=== PATIENT | female | born 1950 | race Caucasian/White ===

== ENCOUNTER 2016-10-02 05:22 | Inpatient (IN) | payer OTHER ==
[~2016-10-02] VITALS: Ht 165.1 cm; Wt 69.4 kg
--- NOTE | ~2016-10-02 | H ---
[facility] [place] [address] [address] [place] [address] HISTORY AND PHYSICAL Name: KYLER CEDENORICPattie Beauchamp Room #: 306-P [facility] IN M.R.#: [id number] Admission: 10/02/16 Attend Phys: Chava Bobo MD, Discharge: 10/09/16 Date of : 46 Report #: [id number] THIS REPORT FOR: //name// For History and Physical, please see office documentation/handwritten note in the patient's medical record. <ELECTRONICALLY SIGNED> By: Chava Bobo MD, FACS 10/15/16 1020 0853 Chava Bobo MD, FACS /jr
--- NOTE | ~2016-10-02 | S ---
[facility] [place] [address] SURGICAL PATH RPT PROCEDURE Name: CATARINO MOCK Room #: 402-P ADM IN M.R.#: [id number] Admission: 10/02/16 Date of : 46 Discharge: Report #: [id number] Path Case #: [id number] PATHOLOGY REPORT COLLECTION DATE: 10/02/2016 RECEIVED DATE: 10/03/2016 SUBMITTING PHYS: Dr. Chava Bobo OTHER PHYS: Dr. Patrice Garcia SPECIMEN(S) RECEIVED: A.Ischemic abdominal wall fascia, incarcerated omentum * * * * * * * * * * * * FINAL DIAGNOSIS: Abdominal wall: - Markedly congested fibroadipose and dense fibrovascular connective tissue. (IUV:csd; d/t: 10/04/2016) PATHOLOGIST: Kaley Odell M.D. REPORT ELECTRONICALLY SIGNED BY: Kaley Odell M.D. DATE/TIME: 10/04/2016 15:02 * * * * * * * * * * * * GROSS PATHOLOGY: The specimen is received in formalin, labeled "Catarino Mock - abdominal wall." Received is a 12.2 x 6.8 x 0.9 cm aggregate of pink-goode to yellow-goode, membranous, and lobulated fibroadipose soft tissue. The specimen is sectioned to reveal a homogenous yellow-goode and lobulated cut surface. No masses or lesions are grossly there are. [employer] sections are submitted in cassette A1. (TTL; 10/03/2016) CLINICAL HISTORY: Parastomal hernia INITIAL CPT CODE(S): 41068 Professional services performed by [facility] at [facility] [address], [place] [address] Technical services performed by [facility] at [address] [place] [address], [address] [address]. [facility] [address] [place] [address] SURGICAL PATH RPT PROCEDURE Name: CATARINO MOCK Room #: 402-P ADM IN M.R.#: [id number] Admission: 10/02/16 Date of : 46 Discharge: Report #: [id number] Path Case #: [id number] [facility] [address] [address] PHONE: [phone] DIRECTOR: Wai Hinton M.D. * * * END OF REPORT * * *
--- NOTE | ~2016-10-02 | O ---
[facility] [place] [place] [address] OPERATIVE REPORT Name: WILIANCATARINO C Room #: 402-P ADM IN M.R.#: [id number] Admission: 10/02/16 Attend Phys: Chava Bobo MD, Discharge: Date of : 46 Report #: [id number] THIS REPORT FOR: //name// CC: Patrice Bobo DATE OF SERVICE: 10/02/2016 PREOPERATIVE DIAGNOSES: 1. Recurrent incarcerated parastomal hernia. 2. Suspected intraabdominal adhesions. 3. Parkinson's disease with resting tremors. 4. Hypothyroidism secondary to Graves' disease. 5. Chronic pain syndrome with neck and leg pain. 6. Generalized debility. POSTOPERATIVE DIAGNOSES: 1. Recurrent incarcerated parastomal hernia. 2. Dense insignificant intraabdominal adhesions. 3. Parkinson's disease with resting tremors. 4. Hypothyroidism secondary to Graves' disease. 5. Chronic pain syndrome with neck and leg pain. 6. Generalized debility. 7. Multiple recurrent incarcerated incisional ventral hernias. 8. Ischemic/necrotic abdominal wall wound. PROCEDURES PERFORMED: 1. Exploratory laparotomy. 2. Extensive lysis of adhesions lasting 197 minutes. 3. Debridement of necrotic/ischemic abdominal wall fascia. 4. Complex abdominal wall reconstruction with open repair of incarcerated recurrent incisional ventral hernias and an incarcerated recurrent parastomal hernia using biomesh (Strattice sandwiched repair). 5. Modified Sugarbaker repair of the parastomal hernia with the biomesh underlay. 6. Bilateral component separation of the rectus abdominis muscle to assist in a tension-free fascial closure. 7. Adjacent tissue transfer of the anterior abdominal wall to achieve complete wound closure with the wound measuring 40 x 34 cm in dimension (1360 square cm). 8. Placement of an external tissue knitting machine operator device (DermaClose) to achieve complete wound coverage with reapproximation of skin edges. 9. Modifier 22 procedure for again extreme difficulty of a procedure that required a lengthy lysis of adhesions of greater than 3 hours coupled with the necessity of a very complex recurrent abdominal wall reconstruction that included debridement of ischemic abdominal wall fascia and complex techniques to close the abdominal wall. This required bilateral component separation as well [address] [address] OPERATIVE REPORT Name: CATARINO CEDENO Nito Room #: 402-P [facility] IN [facility].#: [id number] Admission: 10/02/16 Attend Phys: Chava Bobo MD, Discharge: Date of : 46 Report #: [id number] as adjacent tissue transfer closure of the abdominal wall and the total operative time was greater than 5-1/2 hours as opposed to the usual 60 minute open ventral hernia repair. SURGEON: Chava Bobo M.D. JIG AND FIXTURE BUILDER: Gregory Garcia M.D. SECOND CLARIFICATION OPERATOR: ABRAM Ramirez. ANESTHESIA: General endotracheal anesthesia. ESTIMATED BLOOD LOSS: 50 mL. COMPLICATIONS: None appreciated. SPECIMENS: 1. Ischemic abdominal wall fascia. 2. Incarcerated omentum. INDICATIONS: The patient is a 66-year-old female with a past history of chronic pain syndrome who has undergone numerous prior attempted repairs of parastomal hernias and incisional ventral hernias. The patient's issues all began with complaints of rectal prolapse, which were treated in year 1999 with several perineal procedures as well as a sigmoid resection that was complicated by a leak requiring Jimmy's procedure. As the patient has undergone numerous repeat explorations with attempts of colostomy reversal that were unsuccessful due to a devascularized rectal stump and she has had numerous repairs of her parastomal hernias and incisional ventral hernias, the patient has undergone 2 prior complex abdominal wall reconstruction procedures over the past couple of years. Ultimately, the patient had prolapse of her ostomy that required local repair by a surgeon at [facility] and unfortunately she has now developed a recurrent large parastomal hernia containing loops of small bowel. Indication was for repeat exploration for repair and intraoperative findings of numerous incarcerated recurrent incisional ventral hernias were found as well as her recurrent parastomal hernia that contained loops of small bowel. DESCRIPTION OF PROCEDURE: After explaining the risks, benefits and alternatives of the procedure with the patient in detail in the preoperative holding area and obtaining written consent, the patient was brought to the operating room and placed supine on the operating room table. After conducting a thorough timeout procedure verifying correct patient and procedure, the patient was given general endotracheal anesthesia. Once adequate anesthesia was obtained, her SCDs were hooked up to pneumatic compression device and she was given a preoperative dose of antibiotics in line with the SCIP protocol. The patient's ostomy had a Dubose catheter placed within it with a 30 mL balloon, which was inflated and then the [address] [address] OPERATIVE REPORT Name: CATARINO CEDENO Room #: 402-P [facility] IN M.R.#: [id number] Admission: 10/02/16 Attend Phys: Chava Bobo MD, Discharge: Date of : 46 Report #: [id number] abdomen was sterilely prepped and draped in standard surgical sterile fashion. Sterile Dubose catheter was draped to the side and a sterile Ioban was placed over top of the ostomy and a Dubose catheter with a 4 x 4 placed over the ostomy itself to prevent surgical field contamination. After the sterile drapes were applied, #10 bladed scalpel was used to create a longitudinal midline wound. Electrocautery was used to carry this down through skin and subcutaneous tissues to ensure hemostasis. Once I arrived upon the level of the fascia, there were significant adhesions seen. As such, the incision was extended cephalad and I gained access into the abdomen in the superior most portion where a finger was placed in the abdomen. I proceeded to open the longitudinal midline wound with some difficulty due to adhesions. Ultimately, I was able to open the entire midline wound with again some slight difficulty requiring a lengthy lysis of adhesions and using combination of electrocautery and Metzenbaum scissor dissection. Any time we were near bowel, cold dissection with Metzenbaum scissors were used to prevent injury from thermal spread. Once the midline wound was opened, I proceeded to take down all adhesions of bowel from the posterior aspect of the anterior abdominal wall circumferentially. Significant dissection was carried in the patient's left lateral abdomen where the parastomal hernia was found. Ultimately, I was able to reduce all of the incarcerated loops of small bowel and omentum from the parastomal hernia, which was moderate in size. Upon entry into the abdomen, we did bisect numerous recurrent incarcerated incisional ventral hernias as well down the midline wound. Once the abdomen was opened and the hernia defect was identified, I elected to perform a sandwich repair of this for hopefully definitive management. Electrocautery was used to clean off the fascia externally carrying this back as far as possible circumferentially and in doing so, there was ischemic/necrotic abdominal wall fascia that was encountered that was resected and passed off the field as specimen. Once I carried this especially to the left lateral aspect, the parastomal hernia defect was closed using running #1 PDS suture in standard fashion to make it snug, but not extremely tight to the bowel running through the abdominal wall. Attempts at reapproximating the fascial edges down the midline showed that it would be under extreme tension and as such, I did elect to perform a bilateral component separation technique using electrocautery to score the lateral aspect of the rectus abdominis muscle bilaterally. This allowed significant medial mobilization of the rectus muscles to be reapproximated down the midline in a tension-free fashion. Attention was then turned towards definitive management of her hernia repairs with biologic mesh buttressing. I selected a piece of Strattice biologic mesh that measured 40 x 25 cm in dimension. The mesh was trimmed into 2 pieces, one being 30 x 25 cm in dimension, the other being 10 x 25 cm in dimension. The 10 x 25 cm piece was fully hydrated and placed into the abdomen where the small bowel was placed to run laterally down the pelvic side wall. I then performed a Sugarbaker repair using numerous #1 PDS sutures, taking full thickness bites to the abdominal wall through the mesh backup through the mesh and back up through the abdominal wall where they were tied in the subcutaneous space. Numerous sutures were placed throughout the mesh to hold the mesh in close approximation with the [address] [address] OPERATIVE REPORT Name: CATARINO CEDENO Room #: 402-P [facility] IN ..#: [id number] Admission: 10/02/16 Attend Phys: Chava Bobo MD, Discharge: Date of : 46 Report #: [id number] posterior aspect of the anterior abdominal wall, giving us an excellent Sugarbaker buttressed repair. I then utilized 20 mL of Tisseel and sprayed this in between the mesh in the posterior peritoneum to help with seroma formation and to hold it in proper position. This mesh came all the way up to the fascial edge medially. I then proceeded to take the 30 x 25 cm piece of Strattice and fashioned it to the anterior abdominal wall where it was sutured to the left lateral abdomen taking bites of the anterior fascia along with the mesh and tying it down to anchor it in position. A keyhole was cut out for the ostomy and was not sutured around the ostomy to prevent stricturing, but was placed loosely around the ostomy to help buttress. This was not sutured down in the right lateral abdomen at this juncture. The abdomen was irrigated and hemostasis was assured. I then proceeded to close the midline fascial wound using looped #1 PDS suture in standard running fashion from inferior to superior aspects. This was tied down in the subxiphoid location completing the suture repair. The biologic mesh was then trimmed to fit perfectly into the subcutaneous space to act as an onlay mesh to complete the sandwich repair. Numerous additional sutures of #1 PDS suture were then placed through the mesh through the anterior fascia and backup through the mesh where they were tied in the subcutaneous space in similar fashion as the left lateral abdomen. This allowed both pieces of biologic mesh to be smooth and taut with no rippling. Both added excellent buttress repair of the hernia defects in question. I then placed two 19-Albanian round Rickie-Jasso drains in the subcutaneous space, the one emanating from the right lower abdomen crossed over midline and ran up the left subcutaneous gutter and in similar fashion, the drain emanating from the left lower quadrant crossed over midline in the pelvis and ran up the right subcutaneous gutter. Both drains were anchored to the skin using 2-0 nylon in standard fashion. I then performed adjacent tissue transfer techniques to ensure complete soft tissue coverage over the mesh repair. Skin flaps that had been created circumferentially were elevated and counter incisions were made internally which allowed me to rotate subcutaneous tissue and fat medially. As this tissue was rotated, it was sutured to the opposite side dermis using interrupted inverted 3-0 Vicryl sutures. Numerous sutures were placed, which gave us excellent soft tissue coverage overlying the biologic mesh repair. Skin was then closed with skin robin. As the skin was brought together, but under slight tension, I did elect also to place external tissue knitting machine operator devices to offload tension down the midline. This skin anchors were placed lining the wound longitudinally and were anchored to the skin using a skin stapler. I then utilized 4 separate automatic tensioner devices that were each laced through the anchors appropriately and ratcheted it down to perform both tissue expansion as well as to bolster the midline wound and offload tension down the midline, which is a risk factor for wound dehiscence, especially in this patient with a colostomy. These were placed after applying Telfa to the midline wound to protect the wound itself. DuoDERM was then placed on the skin under the tensioner devices to prevent maceration of the skin. Sterile colostomy appliance was then applied. ABDs, Medipore tape and an abdominal binder were then applied in standard fashion. At the end of the lengthy procedure, all [facility] [address] [place] [address] OPERATIVE REPORT Name: CEDENOCATARINO C Room #: 402-P [facility] IN M.R.#: [id number] Admission: 10/02/16 Attend Phys: Chava Bobo MD, Discharge: Date of : 46 Report #: [id number] instrument, needle and sponge counts were correct. The patient tolerated the procedure without incident, was awakened in the operating room and transitioned to the recovery room in stable condition with no apparent complications. <ELECTRONICALLY SIGNED> By: Chava Bobo MD, FACS 10/04/16 0731 1456 1631 Chava Bobo MD, FACS /nt
--- NOTE | ~2016-10-02 | P ---
[facility] [place] [address] PROCEDURE REPORT Name: CATARINO CEDENO Nito Room #: 306-P ADM IN M.R.#: [id number] Admission: 10/02/16 Attend Phys: Chava Bobo MD, Discharge: Date of : 46 Report #: [id number] THIS REPORT FOR: //name// CC: Patrice Bobo DATE OF SERVICE: 10/08/2016 PREOPERATIVE DIAGNOSES: Status post exploratory laparotomy with extensive lysis of adhesions, debridement of ischemic abdominal wall fascia, complex abdominal wall reconstruction with open repair of an incarcerated recurrent incisional parastomal and ventral hernias with biomesh, bilateral component separation, adjacent tissue transfer closure of the anterior abdominal wall and placement of external tissue expanders. POSTOPERATIVE DIAGNOSES: Status post exploratory laparotomy with extensive lysis of adhesions, debridement of ischemic abdominal wall fascia, complex abdominal wall reconstruction with open repair of an incarcerated recurrent incisional parastomal and ventral hernias with biomesh, bilateral component separation, adjacent tissue transfer closure of the anterior abdominal wall and placement of external tissue expanders. PROCEDURE: Removal of external tissue armorer technician device (DermaClose). SURGEON: Gregory Garcia MD. REGIONAL MARKETING DIRECTOR: ABRAM Ramirez. ANESTHESIA: None required. ESTIMATED BLOOD LOSS: Zero. COMPLICATIONS: None appreciated. INDICATIONS FOR PROCEDURE: This is a 66-year-old female patient, who has undergone numerous prior attempted repairs of parastomal hernias and incisional ventral hernias. Her issues all began with complaints of rectal prolapse, treated in the year 1999. She underwent several perineal operations as well as a sigmoid resection complicated by an intra-abdominal staple line leak. This required a Jimmy's procedure with resection and an end colostomy. The patient has undergone numerous repeat explorations with attempts of colostomy reversal, that were unsuccessful due to a devascularized rectal stump, and she has undergone numerous repairs of her parastomal hernias and incisional ventral hernias. She has also undergone 2 prior complex abdominal wall reconstruction procedures over the past several years. Her stomal prolapse required local repair by a surgeon at [facility]; however, she developed a recurrent [address] [address] PROCEDURE REPORT Name: CEDENOCATARINO C Room #: 306-P ADM IN [facility].#: [id number] Admission: 10/02/16 Attend Phys: Chava Bobo MD, Discharge: Date of : 46 Report #: [id number] large parastomal hernia, containing loops of small bowel, and she underwent the above procedure. Tissue expanders were placed due to poor wound healing with evidence of prior herniation to help offload tension down the midline incision and promote wound healing. As enough laxity has been gained in the anterior abdominal wall to prevent superficial wound dehiscence, removal of the external tissue armorer technician device is indicated. DESCRIPTION OF PROCEDURE IN DETAIL: After explaining the risks, benefits, expectations, and alternatives of the procedure with the patient, an informed consent was obtained. The patient remained in her hospital bed in the supine position. The three separate external tensioner devices were removed by dividing the sutures of each of the tensioners. This allowed the sutures to be unwoven from the anchors and retracted within the device. Once all the tensioners had been removed, the Telfa dressing was removed from the midline wound. The wound was without dehiscence, ecchymosis, or drainage. The wound was clean, dry, and intact. Sterile staple removers were then used to remove all the robin that had affixed the anchors to the anterior abdominal wall. Once the robin were removed, the anchors themselves were gently lifted out of the patient's abdominal wall, leaving just the midline skin robin present down the longitudinal midline wound. There was no undue tension of the wound, and no evidence of necrosis or ischemia. The patient's ostomy remained pink, patent, and functional with stool in the ostomy appliance, well away from the midline wound. The sponge, needle, and instrument counts were correct at the conclusion of the procedure. The patient tolerated the procedure well. She remained in her hospital bed with no apparent complications. The wound was then dressed with sterile dressings and Medipore tape. The abdominal binder was replaced. <ELECTRONICALLY SIGNED> By: Gregory Garcia MD, FACS 10/08/16 1543 0900 1215 Gregory Garcia MD, FACS /nt
--- NOTE | ~2016-10-02 | EKG ---
[address] [address] ELECTROCARDIOGRAM REPORT Name: CATARINO CEDENO Room #: 306-P [facility] IN M.R.#: [id number] Admission: 10/02/16 Attend Phys: Chava Bobo MD, Discharge: Date of : 46 Report #: [id number] THIS REPORT FOR: //name// [facility] Test Date: 2016-10-04 Test Time: 22:10:44 Pat Name: CATARINO CEDENO Department: Room: [facility] Gender: F Diabetologist: rosa : 1950 Requested By: Kana Damian Order Number: [id number] MD: Renny Maza Measurements Intervals [place] Rate: 97 P: 64 MI: 151 QRS: -32 QRSD: 100 T: 33 QT: 340 QTc: 432 Interpretive Statements Sinus rhythm Left axis deviation No previous ECG available for comparison Electronically Signed On 10-05-2016 7:37:21 CDT by Renny Maza [email or web address] <ELECTRONICALLY SIGNED> By: Renny Maza MD, [facility] 10/05/16 0737 2210 09 Renny Maza MD, FACC /EPI
[~2016-10-02 05:22] MED LIST: AMITRIPTYLINE H25 M2 PO; AMITRIPTYLINE H50 M4 PO; ATORVASTATIN CA40 MG PO; BACTRIM DS TAB1 EACH PO; BISACODYL SUPP10 MG; BOOST BREEZE237 ML PO; CARBIDOPA-LEVO1 EAC9 PO; CARBIDOPA25 MG PO; CELEXA20 MG PO; CHANTIX0.5 MG PO; CITALOPRAM HBR40 MG PO; CLONAZEPAM 0.50.5 M1 PO; CLONAZEPAM 1 MG1 M1 PO; CLONAZEPAM0.5 MG PO; COLACE100 MG PO; DAKIN'S473 M1; FISH OIL 1,001000 M2 PO; HYDROCODON-ACE1 EAC7 PO; HYDROCORTISONE30 G9; LEVOTHYROXIN0.125 M1 PO; LEVOTHYROXIN0.137 M1 PO; LEVOTHYROXINE 0.15MG PO; LINEZOLID600 MG PO; MACROBID 100 M100 M1 PO; MELATIN3 MG PO; MIRAPEX0.5 MG PO; MIRAPEX1 MG PO; NEURONTIN300 MG PO; NEURONTIN600 MG PO; NITROMIST8.5 GM SUBLING; NORCO 10-325 T1 EACH PO; NORCO 5-325 TA1 EACH PO; OXYCODONE HCL E10 MG PO; PERCOCET 5-3251 EACH PO; PERCOCET PO; PHENERGAN 25 MG25 M1 PO; PHENERGAN 25 MG25 MG PO; PLAVIX 75 MG TA75 M1 PO; PROMOD946 ML; PROTONIX40 M1 PO; SENNA PLUS TAB1 EACH PO; SENOKOT-S1 TA1 PO; SERTRALINE HCL100 MG PO; TRAMADOL 50 MG50 MG PO; TRANSDERM-SCO1 PATC1 TD; TRINATE TABLET1 TAB PO; TYLENOL325 MG PO; VITAMIN D1000 UNI1 PO; XANAX 0.5 MG0.5 MG PO; ZOFRAN ODT4 MG DISSOLVE; ZOFRAN ODT4 MG PO
[2016-10-02 12:15] VITALS: BP 116/43
[2016-10-02 21:25] VITALS: BP 147/98
[2016-10-02 23:20] VITALS: BP 116/73
[2016-10-03 00:40] VITALS: BP 127/66
[2016-10-03 03:35] VITALS: BP 140/85
[2016-10-03 07:07] LABS: HEMOGLOBIN 10.5 gm/dL (12.0-15.0); MCH 29.7 pg (26.0-34.0); MCHC 32.9 g/dL (28.0-37.0); MCV 90.2 fL (80.0-100.0); RBC 3.55 mil/uL (4.20-5.00); RDW 14.7 % (10.5-14.5); WBC 11.5 thou/uL (4.0-11.0)
[2016-10-03 07:23] LABS: CALCIUM 7.8 mg/dL (8.5-10.1); CREATININE 0.9 mg/dL (0.6-1.3); POTASSIUM 4.6 mmol/L (3.5-5.1)
[2016-10-03 08:00] VITALS: BP 102/50
[2016-10-03 15:18] VITALS: BP 116/65
[2016-10-03 19:30] VITALS: BP 114/58; BP 133/77
[2016-10-04 00:37] VITALS: BP 101/57
[2016-10-04 04:53] VITALS: BP 123/68
[2016-10-04 06:00] LABS: ABSOLUTE NEUTROPHILS 9.4 thou/uL (1.4-8.2); BASOPHILS 0.2 % (0.0-2.0); EOSINOPHILS 0.3 % (0.0-3.0); HEMATOCRIT 32.1 % (37.0-47.0); HEMOGLOBIN 10.5 gm/dL (12.0-15.0); LYMPHOCYTES 12.2 % (24.0-44.0); MCH 29.4 pg (26.0-34.0); MCHC 32.6 g/dL (28.0-37.0); MCV 90.2 fL (80.0-100.0); MONOCYTES 8.5 % (1.0-8.0); PLATELET COUNT 302 thou/uL (150-400); POLYS 78.8 % (36.0-66.0); RBC 3.56 mil/uL (4.20-5.00); RDW 14.8 % (10.5-14.5)
[2016-10-04 06:01] LABS: MANUAL DIFF NO
[2016-10-04 06:08] LABS: CALCIUM 8.4 mg/dL (8.5-10.1); CREATININE 0.6 mg/dL (0.6-1.3)
[2016-10-04 07:22] VITALS: BP 128/83
[2016-10-04 16:23] VITALS: BP 142/78
[2016-10-04 20:00] VITALS: BP 121/63
[2016-10-04 23:46] VITALS: BP 122/67
[2016-10-05 03:21] VITALS: BP 148/84
[2016-10-05 04:54] LABS: HEMATOCRIT 31.7 % (37.0-47.0); HEMOGLOBIN 10.6 gm/dL (12.0-15.0); MCH 29.5 pg (26.0-34.0); MCHC 33.4 g/dL (28.0-37.0); MCV 88.4 fL (80.0-100.0); PLATELET COUNT 322 thou/uL (150-400); RBC 3.59 mil/uL (4.20-5.00); RDW 14.3 % (10.5-14.5); WBC 14.8 thou/uL (4.0-11.0)
[2016-10-05 05:02] LABS: CALCIUM 8.7 mg/dL (8.5-10.1); CREATININE 0.6 mg/dL (0.6-1.3); POTASSIUM 3.8 mmol/L (3.5-5.1)
[2016-10-05 05:05] LABS: MANUAL DIFF YES
[2016-10-05 07:19] LABS: TOTAL CELL COUNT 100
[2016-10-05 08:06] VITALS: BP 159/93
[2016-10-05 15:39] VITALS: BP 131/62
[2016-10-05 20:00] VITALS: BP 138/80
[2016-10-06 04:00] VITALS: BP 92/64
[2016-10-06 10:04] VITALS: BP 156/77
[2016-10-06 13:59] LABS: HEMOGLOBIN 10.1 gm/dL (12.0-15.0); MCH 29.8 pg (26.0-34.0); MCHC 33.6 g/dL (28.0-37.0); MCV 88.8 fL (80.0-100.0); RBC 3.37 mil/uL (4.20-5.00); RDW 14.1 % (10.5-14.5); WBC 11.4 thou/uL (4.0-11.0)
[2016-10-06 14:07] LABS: CALCIUM 8.8 mg/dL (8.5-10.1); CREATININE 0.7 mg/dL (0.6-1.3); POTASSIUM 3.7 mmol/L (3.5-5.1)
[2016-10-06 17:44] VITALS: BP 135/67
[2016-10-06 19:20] VITALS: BP 132/72
[2016-10-07 04:02] VITALS: BP 141/69
[2016-10-07 04:19] LABS: HEMATOCRIT 27.2 % (37.0-47.0); HEMOGLOBIN 9.5 gm/dL (12.0-15.0); MCH 30.5 pg (26.0-34.0); MCHC 34.8 g/dL (28.0-37.0); MCV 87.5 fL (80.0-100.0); RBC 3.11 mil/uL (4.20-5.00); WBC 10.5 thou/uL (4.0-11.0)
[2016-10-07 04:28] LABS: CALCIUM 8.8 mg/dL (8.5-10.1); CREATININE 0.6 mg/dL (0.6-1.3)
[2016-10-07 07:10] VITALS: BP 116/47
[2016-10-07 15:36] VITALS: BP 128/68
[2016-10-07 20:00] VITALS: BP 99/79
[2016-10-08 04:00] VITALS: BP 110/80
[2016-10-08 06:24] LABS: HEMATOCRIT 27.8 % (37.0-47.0); HEMOGLOBIN 9.6 gm/dL (12.0-15.0); MCH 30.4 pg (26.0-34.0); MCHC 34.6 g/dL (28.0-37.0); MCV 87.6 fL (80.0-100.0); RBC 3.17 mil/uL (4.20-5.00); RDW 14.1 % (10.5-14.5); WBC 8.4 thou/uL (4.0-11.0)
[2016-10-08 06:31] LABS: CALCIUM 8.8 mg/dL (8.5-10.1); CREATININE 0.6 mg/dL (0.6-1.3); POTASSIUM 4.2 mmol/L (3.5-5.1)
[2016-10-08 08:20] VITALS: BP 124/72
[2016-10-08 17:00] VITALS: BP 134/77
[2016-10-08 19:08] VITALS: BP 135/68
[2016-10-09 03:14] VITALS: BP 81/43
[2016-10-09 06:30] LABS: HEMATOCRIT 29.7 % (37.0-47.0); MCH 29.5 pg (26.0-34.0); MCHC 33.7 g/dL (28.0-37.0); MCV 87.5 fL (80.0-100.0); RBC 3.4 mil/uL (4.20-5.00)
[2016-10-09 06:54] LABS: CREATININE 0.8 mg/dL (0.6-1.3); POTASSIUM 3.8 mmol/L (3.5-5.1)
[2016-10-09 08:00] VITALS: BP 103/60
[2016-10-09] MEDS ORDERED: HYDROCODONE-ACE15 ML PER TUBE (08:48)
[2016-10-09 10:57] VITALS: BP 103/60
== END 2016-10-09 11:40 | disposition home health service (06) | DRG 336 ==
LOC: TBA 05:22 → 4N 05:22 → 3N 05:22 → PRE 13:17 → 4N 21:59 → 3N 10-04 23:25
PROVIDERS: Internal Medicine; Surgery
PROC: 0JB80ZZ Excision of Abdomen Subcutaneous Tissue and Fascia, Open Approach (ICD-10-PCS; principal; 2016-10-02)
PROC: 0HX7XZZ Transfer Abdomen Skin, External Approach (ICD-10-PCS; principal; 2016-10-02)
PROC: 0DN80ZZ Release Small Intestine, Open Approach (ICD-10-PCS; principal; 2016-10-02)
PROC: 0WUF0JZ Supplement Abdominal Wall with Synthetic Substitute, Open Approach (ICD-10-PCS; principal; 2016-10-02)
PROC: 0JH80NZ Insertion of Tissue Expander into Abdomen Subcutaneous Tissue and Fascia, Open Approach (ICD-10-PCS; principal; 2016-10-02)
PROC: 0JP Subcutaneous Tissue and Fascia, Removal (ICD-10-PCS; 2016-10-08)
DX: K43.0 Incisional hernia with obstruction, without gangrene (principal); N39.0 Urinary tract infection, site not specified; K43.3 Parastomal hernia with obstruction, without gangrene; G20 Parkinson's disease; E05.00 Thyrotoxicosis with diffuse goiter without thyrotoxic crisis or storm; G89.4 Chronic pain syndrome; I50.9 Heart failure, unspecified; F32.9 Major depressive disorder, single episode, unspecified; E78.00 Pure hypercholesterolemia, unspecified; E03.9 Hypothyroidism, unspecified; K66.0 Peritoneal adhesions (postprocedural) (postinfection); F41.9 Anxiety disorder, unspecified; Z96.653 Presence of artificial knee joint, bilateral; Z88.1 Allergy status to other antibiotic agents; Z88.8 Allergy status to other drugs, medicaments and biological substances; Z82.49 Family history of ischemic heart disease and other diseases of the circulatory system; Z90.710 Acquired absence of both cervix and uterus; Z90.722 Acquired absence of ovaries, bilateral; Z83.3 Family history of diabetes mellitus
CPT/HCPCS: 10096; 10790; 50010; 50101; 50386; 50455; 50994; 51437; 54124; 56524; 56525; 56527; 56530; 57092; 62110; 62900; 70005

== ENCOUNTER 2016-10-27 20:53 | Inpatient (IN) | payer OTHER ==
[~2016-10-27] VITALS: Ht 165.1 cm; Wt 68.9 kg
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
--- NOTE | ~2016-10-27 | EKG ---
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
[~2016-10-27 20:53] MED LIST changes: +HYDROCODONE-ACE15 ML PER TUBE
[2016-10-27 21:00] VITALS: BP 162/77
[2016-10-27] MEDS ORDERED: OXYCODONE HCL10 MG PO (21:32)
[2016-10-27 21:35] LABS: ABSOLUTE NEUTROPHILS 10.8 thou/uL (1.4-8.2); BASOPHILS 0.6 % (0.0-2.0); HEMATOCRIT 26.7 % (37.0-47.0); HEMOGLOBIN 8.8 gm/dL (12.0-15.0); LYMPHOCYTES 9.6 % (24.0-44.0); MCH 28.4 pg (26.0-34.0); MONOCYTES 4.1 % (1.0-8.0); PLATELET COUNT 590 thou/uL (150-400); POLYS 84.7 % (36.0-66.0); WBC 12.8 thou/uL (4.0-11.0)
[2016-10-27 21:36] LABS: MANUAL DIFF NO
[2016-10-27 21:44] LABS: URINE BILIRUBIN NEGATIVE (Negative); URINE BLOOD NEGATIVE (Negative); URINE COLOR YELLOW; URINE GLUCOSE-RANDOM* NEGATIVE (Negative); URINE KETONES TRACE (Negative); URINE LEUKOCYTES-REFLEX TRACE (Negative); URINE PROTEIN (DIPSTICK) NEGATIVE (Negative); URINE UROBILINOGEN 0.2 E.U./dl (0.2-1.0)
[2016-10-27 21:46] LABS: ALBUMIN 2.3 g/dL (3.4-5.0); ALKALINE PHOSPHATASE 121 U/L (46-116); ANION GAP 10 mmol/L (7-16); BUN 7 mg/dL (7-18); CHLORIDE 96 mmol/L (98-107); CO2 25 mmol/L (21-32); CREATININE 0.6 mg/dL (0.6-1.0); GLUCOSE 101 mg/dL (74-106); POTASSIUM 3.6 mmol/L (3.5-5.1); SGOT 32 U/L (15-37); SGPT 16 U/L (30-65); SODIUM 131 mmol/L (136-145); TOTAL BILIRUBIN 0.6 mg/dL (<0.1-1.0); TOTAL PROTEIN 7.4 g/dL (6.4-8.2)
[2016-10-27 22:04] LABS: CALCIUM 8.9 mg/dL (8.5-10.1); NT-PRO BRAIN NAT PEPTIDE 334 pg/mL (<300); TROPONIN-I < 0.04 ng/mL (<0.04-0.07)
[2016-10-28] VITALS (12 sets, daily range): BP systolic 90–157; BP diastolic 50–84
[2016-10-28 08:12] LABS: INR 1.1; PROTIME 11.5 Seconds (9.3-11.4)
[2016-10-29 04:30] VITALS: BP 94/54
[2016-10-29 05:32] LABS: HEMATOCRIT 24.5 % (37.0-47.0); HEMOGLOBIN 8.1 gm/dL (12.0-15.0); MANUAL DIFF NO; MCH 28.5 pg (26.0-34.0); MCHC 33.2 % (28.0-37.0); MCV 85.8 fL (80.0-100.0); PLATELET COUNT 557 thou/uL (150-400); POLYS 76.2 % (36.0-66.0); RBC 2.85 mil/uL (4.20-5.00); RDW 15.2 % (10.5-14.5); WBC 9.7 thou/uL (4.0-11.0)
[2016-10-29 05:33] LABS: ABSOLUTE NEUTROPHILS 7.4 thou/uL (1.4-8.2); BASOPHILS 0.6 % (0.0-2.0); EOSINOPHILS 2.3 % (0.0-3.0); MONOCYTES 3.9 % (1.0-8.0)
[2016-10-29 05:50] LABS: ALBUMIN 2.1 g/dL (3.4-5.0); CALCIUM 7.8 mg/dL (8.5-10.1); CREATININE 0.8 mg/dL (0.6-1.0); MAGNESIUM 1.9 mg/dL (1.8-2.4); POTASSIUM 3.7 mmol/L (3.5-5.1); TOTAL BILIRUBIN 0.3 mg/dL (<0.1-1.0); TOTAL PROTEIN 6.9 g/dL (6.4-8.2)
[2016-10-29 08:11] VITALS: BP 125/75
[2016-10-29 15:58] VITALS: BP 145/84
[2016-10-29 20:00] VITALS: BP 126/72
[2016-10-30 00:40] LABS: HEMATOCRIT 24.2 % (37.0-47.0); HEMOGLOBIN 8.2 gm/dL (12.0-15.0); MCHC 33.7 g/dL (28.0-37.0); MCV 86.1 fL (80.0-100.0); RBC 2.82 mil/uL (4.20-5.00); RDW 15.4 % (10.5-14.5)
[2016-10-30 01:04] LABS: CALCIUM 8.2 mg/dL (8.5-10.1); CREATININE 0.6 mg/dL (0.6-1.0); POTASSIUM 3.6 mmol/L (3.5-5.1)
[2016-10-30 04:22] VITALS: BP 149/88
[2016-10-30 07:30] VITALS: BP 146/88
[2016-10-30 11:32] VITALS: BP 133/76
[2016-10-30 15:13] VITALS: BP 115/53
[2016-10-30 20:00] VITALS: BP 102/50
[2016-10-31 04:20] VITALS: BP 121/66
[2016-10-31 15:25] VITALS: BP 138/72
[2016-10-31 20:00] VITALS: BP 141/74
[2016-11-01 04:00] VITALS: BP 139/82
[2016-11-01 08:07] VITALS: BP 151/81
[2016-11-01 13:18] VITALS: BP 151/81
[2016-11-01 15:48] VITALS: BP 168/86
[2016-11-01 21:30] VITALS: BP 124/53
[2016-11-02 04:30] VITALS: BP 127/68
[2016-11-02 07:33] VITALS: BP 129/57
[2016-11-02 10:39] VITALS: BP 151/81
[2016-11-02 10:50] VITALS: BP 151/81
[2016-11-02] MEDS ORDERED: SSD CREAM 1% 5050 GM TOP (12:00)
== END 2016-11-02 12:32 | disposition home health service (06) | DRG 857 ==
LOC: ER 20:53 → EROBS 23:34 → 4E 23:34
PROVIDERS: Emergency Medicine; Family Medicine; Nurse Practitioner; Surgery
PROC: 0W9F3ZX Drainage of Abdominal Wall, Percutaneous Approach, Diagnostic (ICD-10-PCS; principal; 2016-10-28)
PROC: 02HV33Z Insertion of Infusion Device into Superior Vena Cava, Percutaneous Approach (ICD-10-PCS; 2016-10-29)
DX: T81.4XXA Infection following a procedure, initial encounter (principal); L02.211 Cutaneous abscess of abdominal wall; E44.0 Moderate protein-calorie malnutrition; K56.7 Ileus, unspecified; B95.62 Methicillin resistant Staphylococcus aureus infection as the cause of diseases classified elsewhere; E03.9 Hypothyroidism, unspecified; E78.00 Pure hypercholesterolemia, unspecified; F17.210 Nicotine dependence, cigarettes, uncomplicated; F32.9 Major depressive disorder, single episode, unspecified; E66.9 Obesity, unspecified; G20 Parkinson's disease; Y83.8 Other surgical procedures as the cause of abnormal reaction of the patient, or of later complication, without mention of misadventure at the time of the procedure; Z93.3 Colostomy status; Y92.89 Other specified places as the place of occurrence of the external cause; Z68.25 Body mass index [BMI] 25.0-25.9, adult; Z90.710 Acquired absence of both cervix and uterus; Z86.73 Personal history of transient ischemic attack (TIA), and cerebral infarction without residual deficits; Z87.820 Personal history of traumatic brain injury; Z90.49 Acquired absence of other specified parts of digestive tract; Z88.1 Allergy status to other antibiotic agents; Z88.8 Allergy status to other drugs, medicaments and biological substances; Z83.3 Family history of diabetes mellitus; Z82.0 Family history of epilepsy and other diseases of the nervous system; Z82.49 Family history of ischemic heart disease and other diseases of the circulatory system
CPT/HCPCS: 10084; 27000

== ENCOUNTER 2016-11-16 23:34 | Inpatient (IN) | payer OTHER ==
[~2016-11-16] VITALS: Ht 165.1 cm; Wt 65.3 kg
--- NOTE | ~2016-11-16 | EKG ---
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 : 1950 Requested By: Mc Springer Order Number: [id number] MD: Augustine Chaudhari Measurements Intervals [place] Rate: 78 P: 56 UT: 158 QRS: -36 QRSD: 99 T: 35 QT: 398 QTc: 454 Interpretive Statements Sinus rhythm Left axis deviation Baseline wander in lead(s) V1,V2 Compared to ECG 10/27/2016 21:52:37 Left-axis deviation now present Electronically Signed On 11-18-2016 22:16:30 CDT by Augustine Chaudhari [email or web address] <ELECTRONICALLY SIGNED> By: Augustine Chaudhari MD 11/18/16 2216 [id number] Augustine Chaudhari MD /[facility]
--- NOTE | ~2016-11-16 | HC ---
[facility] [place] [address] CONSULTATION Name: CATARINO CEDENO Nito Room #: 408-P ADM IN M.R.#: [id number] Admission: 11/17/16 Attend Phys: Shirin Ludwig Discharge: Date of : 46 Report #: [id number] THIS REPORT FOR: //name// CC: Shirin Bobo DATE OF SERVICE: 11/17/2016 ATTENDING PHYSICIAN: Shirin Ludwig MD REASON FOR CONSULTATION: Possible abdominal abscess, abdominal pain. HISTORY OF PRESENT ILLNESS: This is a 66-year-old female patient known to our service from a previous management of an abdominal wall hernia. She underwent a complex abdominal wall reconstruction on 10/02/2016. She developed an intraabdominal abscess, which was drained by interventional radiology. The drains have since then removed. She has a known seroma in the anterior abdominal wall that did not require drainage at her last hospitalization. She has been followed in the clinic by our nurse practitioner, Latonia Joy, and was felt to be doing well. The patient was admitted to this hospitalization with worsening nausea, vomiting and abdominal pain, which seemed to have worsened after she started clindamycin. She also notes increased colostomy output. The patient was seen in the emergency room and underwent a CT of the abdomen and pelvis which showed a decrease in the fluid collection, felt to be seroma rather than an abscess. No air was present within fluid collection. [facility] also aggressively overread the CT scan calling a "questionable small fistula posterior to the bladder extending posterior into the mucous fistula." I reviewed the film with Dr. Ayers who agreed that there was no fistula present. The patient denies recurrent UTIs, fecaluria, or pneumaturia. We have been asked to see the patient for further evaluation and treatment. PAST MEDICAL HISTORY: Significant for hypothyroidism secondary to Graves disease, treated with radioactive iodine; anxiety; chronic pain syndrome; hyperlipidemia; Parkinson's with resting tremors; multiple chronic spine issues; coronary artery disease; and history of angioplasty. PAST SURGICAL HISTORY: Multiple and includes several perineal procedures to treat rectal prolapse, sigmoid resection, complicated by a leak requiring Jimmy's procedure, colostomy revision, repair of parastomal hernia, complex abdominal wall reconstruction, colostomy relocation with repeat complex abdominal wall reconstruction. More recently in 07/2015, the patient underwent exploratory laparotomy, extensive lysis of adhesions, abdominal wall debridement and abdominal wall reconstruction with colostomy revision. This past September, she underwent an additional complex abdominal wall reconstruction and modified [address] [address] CONSULTATION Name: CATARINO CEDENO Nito Room #: 408-P [facility] IN [facility].#: [id number] Admission: 11/17/16 Attend Phys: Shirin Ludwig Discharge: Date of : 46 Report #: [id number] [place] repair of the parastomal hernia. ALLERGIES: CIPROFLOXACIN, FLAGYL, ROFECOXIB, and ROTIGOTINE. MEDICATIONS: Please see the hospital chart for a full medication list and dosing details. Her home medications include oxycodone IR, Zofran, clindamycin, atorvastatin, vitamin D, carbidopa/levodopa, Neurontin, Synthroid, Mirapex, Colace, Xanax, Chantix, Plavix, and fish oil. FAMILY HISTORY: Reviewed and noncontributory to this hospitalization. SOCIAL HISTORY: The patient denies use of illicit drugs. She reports both alcohol and tobacco use. REVIEW OF SYSTEMS: As per history of present illness. GENERAL: The patient denies fever or chills. HEENT: Denies eye pain or visual changes. RESPIRATORY: Denies shortness of breath or cough. CARDIOVASCULAR: Denies chest pain or palpitations. GASTROINTESTINAL: Reports abdominal pain as well as nausea, vomiting, and diarrhea with increased stoma output. GENITOURINARY: Denies dysuria, urgency, and increased urinary frequency. MUSCULOSKELETAL: Denies back pain or muscle pain, has other chronic pain issues. SKIN AND INTEGUMENTARY: Denies new skin lesions, rashes, or moles. ENDOCRINE: Denies polydipsia, polyuria, heat or cold intolerance. HEMATOLOGIC: Reports easy bleeding or bruising on Plavix. All other review of systems is negative. PHYSICAL EXAMINATION: VITAL SIGNS: Temperature 97.8, blood pressure 102/61, pulse 70, respirations 16. GENERAL: This is a 66-year-old female patient, in no acute distress. HEENT: Atraumatic and normocephalic. NECK: Supple. CHEST: Clear bilaterally. CARDIOVASCULAR: Regular rate and rhythm. ABDOMEN: Soft, but diffusely tender to palpation. Her midline incisional scars are well healed. No apparent reherniation. Her stoma is pink, patent, and functional with light brown liquid stool in the ostomy appliance. GENITOURINARY: Normal external female genitalia. EXTREMITIES: No clubbing, cyanosis or edema. NEUROLOGIC: Cranial nerves 2-12 grossly intact. PSYCHIATRIC: Normal mood and affect. SKIN AND INTEGUMENTARY: No acute inflammatory changes, rashes or lesions are [facility] [address] [place] [address] CONSULTATION Name: CATARINO CEDENO Room #: 408-P ADM IN [place].#: [id number] Admission: 11/17/16 Attend Phys: Shirin Ludwig Discharge: Date of : 46 Report #: [id number]. LABORATORY DATA: CBC shows a white blood cell count of 8.5, hemoglobin 9.6, hematocrit 29.1 and platelets 413. Electrolytes show sodium 139, potassium 3.5, chloride 105, CO2 of 26, BUN 14, creatinine 0.6 and glucose 98with normal liver function tests and a normal lipase. Urinalysis showed trace blood, 1+ leukocytes. Urine culture was taken is pending. RADIOLOGIC STUDIES: CT of the abdomen and pelvis, findings are as noted above. There were no acute intraabdominal or intrapelvic findings. The anterior abdominal wall fluid collection appeared decreased in size compared with prior study with removal of the percutaneous drainage catheter. IMPRESSION AND PLAN: This is a 66-year-old female patient with the above listed comorbidities who has been admitted with abdominal pain, nausea, vomiting, and increased colostomy output. This seems to have occurred after she started taking oral clindamycin. C. diff is currently pending. The fluid collection in the anterior abdominal wall represents a seroma which will require no further treatment. The seroma is actually decreasing in size over the past several weeks as evidenced by the CT scan. The patient was reassured that her abscess has resolved and that the fluid collection that remains is a simple seroma that may take several weeks to fully resolve. She has no acute general surgery issues at this time. Continue current care and we will follow along with you. We sincerely appreciate the opportunity to participate in the care of this patient and will leave further recommendations and orders in the electronic medical record as appropriate pending her clinical course. <ELECTRONICALLY SIGNED> By: Gregory Garcia MD, FACS 11/19/16 0843 0052 0314 Gregory Garcia MD, FACS /nt
--- NOTE | ~2016-11-16 | HC ---
[facility] [place] [address] CONSULTATION Name: CEDENOCATARINO Nito Room #: 408-P ADM IN M.R.#: [id number] Admission: 11/17/16 Attend Phys: Shirin Ludwig Discharge: Date of : 46 Report #: [id number] THIS REPORT FOR: //name// CC: Shirin Ludwig Patrice [place] Chava Orourkeiman DATE OF SERVICE: 11/19/2016 INFECTIOUS DISEASE CONSULTATION ATTENDING PHYSICIAN: Shirin Ludwig M.D. REASON FOR CONSULTATION: Diarrhea. Abdominal pain. History of MRSA to abdominal wall infection. HISTORY OF PRESENT ILLNESS: The patient is a 66-year-old white woman, recently discharged from [facility] after being diagnosed to have MRSA infection of abdominal wall, treated with percutaneous drainage by Dr. Vijay Berg. The patient received intravenous vancomycin while hospitalized and she was discharged on intravenous daptomycin, which she did for a couple of weeks and subsequently, this was discontinued last week and the patient placed on Cleocin 300 mg t.i.d. The patient called the next day or day after complaining of increasing colostomy output. She was advised to lay off Cleocin through Saturday, but signs and symptoms worsened during the weekend and she was evaluated in the emergency room on Saturday and hospitalized with possible Clostridium difficile colitis, received treatment with oral vancomycin and intravenous Zosyn. The CT scan of abdomen and pelvis revealed abdominal wall fluid collection that has unchanged much compared to previous CT scan prior to discharge. PAST MEDICAL HISTORY: The patient has required multiple surgical interventions to her abdomen, lysis of adhesions, permanent colostomy and repair of abdominal wall hernia with bioprosthetic mesh. Previous hysterectomy. Spinal stenosis surgery. History of rotator cuff surgery. Cholecystectomy. History of Graves' disease. Parkinson's disease. Previous CVA. Depression, on treatment. DRUG ALLERGIES AND INTOLERANCE: The patient is allergic and intolerant to CIPRO and FLAGYL. She is also intolerant to ROFECOXIB, which has caused her to have anemia. SOCIAL HISTORY: See H and P, old records. FAMILY HISTORY: See H and P, old records. REVIEW OF SYSTEMS: Abdominal pain. Increasing output per colostomy, requiring [facility] [address] [place] [place] [address] CONSULTATION Name: CATARINO CEDENO Nito Room #: [address] [place] [address] IN .R.#: [id number] Admission: 11/17/16 Attend Phys: Shirin Ludwig Discharge: Date of : 46 Report #: [id number] change of bag some 6 times daily or thereabout. No systemic symptoms. MEDICATIONS: The patient is currently on treatment with vancomycin 250 mg p.o. t.i.d., Zosyn 3.375 grams IV every 6 hours, p.r.n. ondansetron, Sinemet, pramipexole, alprazolam, promethazine, atorvastatin, gabapentin, clopidogrel, sertraline and levothyroxine. PHYSICAL EXAMINATION: GENERAL: Well-developed woman, not septic or toxic looking, afebrile since admission. VITAL SIGNS: On admission, vital signs as follows: Temperature 97.6, pulse 78, respirations 17 and BP 138/59. HEENT: Head normocephalic, atraumatic. Pupils reactive. Mouth, no thrush. NECK: Supple. No thyromegaly. LUNGS: Clear to auscultation. HEART: S1, S2. No gallops. BREAST EXAMINATION: Deferred. ABDOMEN: Colostomy in place with stools. Abdomen tender throughout and usually tender. Multiple surgical scars. EXTREMITIES: No clubbing or cyanosis. She does have a right arm PICC. The PICC site looks fine. The PICC line has been safe for a couple of weeks since discharge from the hospital last. NEUROLOGIC: Grossly within normal limits. LABORATORY DATA: Sodium 140, potassium 3.9, BUN 4 and creatinine 0.6. Albumin 2.6 g/dL. On admission, WBC 8500, hemoglobin 9.6 g/dL and platelets 413,000. I obtained a sedimentation rate yesterday at 77 mm per hour. C. difficile toxin assay done November 17 is negative. Urinalysis revealed trace blood, otherwise negative. MICROBIOLOGY DATA: The abdominal wall fluid collection culture revealed MRSA on previous hospitalization. A stool for enteric pathogens pending. RADIOLOGIC EVALUATION: CT scan of abdomen and pelvis revealed abdominal wall fluid collection. The size of the fluid collection is smaller than previously and essentially unchanged and on reviewing these findings with Dr. Vijay berg, he feels the fluid is not amenable to percutaneous drainage any longer. ASSESSMENT: 1. Abdominal pain and history of recent methicillin-resistant Staphylococcus aureus infection of abdominal wall. 2. Antibiotic-associated diarrhea with negative Clostridium difficile toxin assay. 3. Colostomy and abdominal wall hernia repair with bioprosthetic mesh. 4. Parkinson's disease. 5. Malnutrition. [facility] [address] [place] [address] CONSULTATION Name: CATARINO CEDENO Room #: 408-P ADM IN M.R.#: [id number] Admission: 11/17/16 Attend Phys: Shirin Ludwig Discharge: Date of : 46 Report #: [id number] 6. Anemia of chronic disease. 7. CIPRO and FLAGYL allergy. SUGGESTIONS: Recommend discontinue Zosyn. Start vancomycin 1 gram IV every 8 hours. Continue oral vancomycin, but will discontinue this if C. difficile toxin assay negative. We will possibly make plans for discharging the patient on home IV vancomycin 1 gram IV every [address] Ludwig and Dr. Bobo, thank you for requesting my suggestions in the care of your patient. <ELECTRONICALLY SIGNED> By: Adalid Chaudhari MD 11/21/16 1052 1107 1317 Adalid Chaudhari MD /nt
[~2016-11-16 23:34] MED LIST changes: +OXYCODONE HCL10 MG PO; +SSD CREAM 1% 5050 GM TOP
[2016-11-16 23:48] VITALS: BP 138/59
[2016-11-16] MEDS ORDERED: CLEOCIN HCL300 MG PO (23:58)
[2016-11-17 00:19] LABS: ABSOLUTE NEUTROPHILS 4.9 thou/uL (1.4-8.2); BASOPHILS 1.3 % (0.0-2.0); EOSINOPHILS 2.3 % (0.0-3.0); HEMATOCRIT 29.1 % (37.0-47.0); HEMOGLOBIN 9.6 gm/dL (12.0-15.0); LYMPHOCYTES 30.9 % (24.0-44.0); MCH 28.4 pg (26.0-34.0); MCHC 32.8 g/dL (28.0-37.0); MCV 86.5 fL (80.0-100.0); PLATELET COUNT 413 thou/uL (150-400); POLYS 57.5 % (36.0-66.0); RBC 3.36 mil/uL (4.20-5.00); RDW 16.2 % (10.5-14.5); WBC 8.5 thou/uL (4.0-11.0)
[2016-11-17 00:21] LABS: MANUAL DIFF NO
[2016-11-17 00:29] LABS: ANION GAP 8 mmol/L (7-16); BUN 14 mg/dL (7-18); CALCIUM 8.9 mg/dL (8.5-10.1); CHLORIDE 105 mmol/L (98-107); CO2 26 mmol/L (21-32); CREATININE 0.6 mg/dL (0.6-1.0); GLUCOSE 98 mg/dL (74-106); POTASSIUM 3.5 mmol/L (3.5-5.1); SODIUM 139 mmol/L (136-145)
[2016-11-17 00:34] LABS: ALBUMIN 3.2 g/dL (3.4-5.0); ALKALINE PHOSPHATASE 114 U/L (46-116); SGOT 10 U/L (15-37); TOTAL BILIRUBIN 0.2 mg/dL (<0.1-1.0); TOTAL PROTEIN 7.8 g/dL (6.4-8.2)
[2016-11-17 00:34] LABS: URINE BILIRUBIN NEGATIVE (Negative); URINE BLOOD TRACE (Negative); URINE COLOR YELLOW; URINE GLUCOSE-RANDOM* NEGATIVE (Negative); URINE KETONES NEGATIVE (Negative); URINE LEUKOCYTES-REFLEX 1+ (Negative); URINE PROTEIN (DIPSTICK) NEGATIVE (Negative); URINE UROBILINOGEN 0.2 E.U./dl (0.2-1.0)
[2016-11-17 00:36] LABS: SGPT < 6 U/L (30-65)
[2016-11-17 00:56] LABS: CASTS None Seen /LPF (None Seen); SQUAMOUS None Seen /LPF (0-3)
[2016-11-17 00:57] LABS: CRYSTALS None Seen /LPF (None Seen); URINE RBC 0-2 Rare /HPF (0-2); URINE WBC-REFLEX 0-5 Rare /HPF (0-5)
[2016-11-17 02:33] VITALS: BP 91/45
[2016-11-17 02:45] VITALS: BP 95/55
[2016-11-17 08:03] VITALS: BP 102/61
[2016-11-17 16:38] VITALS: BP 100/58
[2016-11-17 19:04] VITALS: BP 91/50
[2016-11-17 19:35] VITALS: BP 128/57
[2016-11-18 03:41] VITALS: BP 112/57
[2016-11-18 08:02] VITALS: BP 114/61
[2016-11-18 17:14] VITALS: BP 135/75
[2016-11-18 20:00] VITALS: BP 119/47
[2016-11-19 04:00] VITALS: BP 124/83
[2016-11-19 06:16] LABS: ABSOLUTE NEUTROPHILS 3.7 thou/uL (1.4-8.2); BASOPHILS 0.5 % (0.0-2.0); EOSINOPHILS 4.5 % (0.0-3.0); HEMATOCRIT 26.9 % (37.0-47.0); HEMOGLOBIN 8.8 gm/dL (12.0-15.0); LYMPHOCYTES 23.8 % (24.0-44.0); MCH 28.3 pg (26.0-34.0); MCHC 32.8 g/dL (28.0-37.0); MCV 86.3 fL (80.0-100.0); MONOCYTES 7.3 % (1.0-8.0); PLATELET COUNT 341 thou/uL (150-400); POLYS 63.9 % (36.0-66.0); RBC 3.12 mil/uL (4.20-5.00); RDW 15.6 % (10.5-14.5); WBC 5.8 thou/uL (4.0-11.0)
[2016-11-19 06:28] LABS: ALBUMIN 2.6 g/dL (3.4-5.0); CALCIUM 8.5 mg/dL (8.5-10.1); CREATININE 0.7 mg/dL (0.6-1.0); PHOSPHORUS 3.9 mg/dL (2.5-4.9); POTASSIUM 3.3 mmol/L (3.5-5.1)
[2016-11-19 06:31] LABS: MANUAL DIFF NO
[2016-11-19 07:53] VITALS: BP 147/95
[2016-11-19 09:57] LABS: CALCIUM 8.3 mg/dL (8.5-10.1); CREATININE 0.7 mg/dL (0.6-1.0); MAGNESIUM 1.9 mg/dL (1.8-2.4); POTASSIUM 3.5 mmol/L (3.5-5.1)
[2016-11-19 15:36] VITALS: BP 131/60
[2016-11-19 20:01] VITALS: BP 133/61
[2016-11-20 04:42] VITALS: BP 141/65
[2016-11-20 06:00] LABS: CALCIUM 8.5 mg/dL (8.5-10.1); CREATININE 0.6 mg/dL (0.6-1.0); MAGNESIUM 1.8 mg/dL (1.8-2.4); POTASSIUM 3.9 mmol/L (3.5-5.1)
[2016-11-20 08:00] VITALS: BP 149/71
[2016-11-20 15:50] VITALS: BP 153/64
[2016-11-20 19:21] VITALS: BP 147/73
[2016-11-21 03:49] VITALS: BP 118/60
[2016-11-21 08:00] VITALS: BP 135/70
[2016-11-21] MEDS ORDERED: VANCOMYCIN1 GM/1001 IV (10:32)
[2016-11-21] MEDS ORDERED: OXYCODONE HCL10 MG PO (10:33)
[2016-11-21] MEDS ORDERED: HYDROCODONE-ACE15 ML PO (10:33)
[2016-11-21] MEDS ORDERED: PROBIOTIC1 EAC1 PO (10:34)
[2016-11-21 11:43] VITALS: BP 135/70
== END 2016-11-21 14:48 | disposition home health service (06) | DRG 919 ==
LOC: ER 23:34 → 4N 11-17 02:11 → 5S 11-17 02:11 → EROBS 11-17 02:11 → 5S 11-17 02:37 → 4N 11-18 17:32
PROVIDERS: Emergency Medicine; Hospitalist; Surgery
DX: L76.34 Postprocedural seroma of skin and subcutaneous tissue following other procedure (principal); E43 Unspecified severe protein-calorie malnutrition; L02.211 Cutaneous abscess of abdominal wall; G20 Parkinson's disease; M19.90 Unspecified osteoarthritis, unspecified site; M48.06 Spinal stenosis, lumbar region; E03.9 Hypothyroidism, unspecified; E78.5 Hyperlipidemia, unspecified; E05.00 Thyrotoxicosis with diffuse goiter without thyrotoxic crisis or storm; G89.4 Chronic pain syndrome; I25.10 Atherosclerotic heart disease of native coronary artery without angina pectoris; D63.8 Anemia in other chronic diseases classified elsewhere; F32.9 Major depressive disorder, single episode, unspecified; Z68.24 Body mass index [BMI] 24.0-24.9, adult; Z79.899 Other long term (current) drug therapy; Z87.891 Personal history of nicotine dependence; Z87.820 Personal history of traumatic brain injury; Z93.3 Colostomy status; Z90.49 Acquired absence of other specified parts of digestive tract; Z86.14 Personal history of Methicillin resistant Staphylococcus aureus infection; Z88.1 Allergy status to other antibiotic agents; Z88.8 Allergy status to other drugs, medicaments and biological substances; Z95.5 Presence of coronary angioplasty implant and graft; Z90.710 Acquired absence of both cervix and uterus; Z82.49 Family history of ischemic heart disease and other diseases of the circulatory system
CPT/HCPCS: 10086; 10091

== ENCOUNTER → 2016-11-28 | Outpatient (CLI) | payer OTHER ==
[~2016-11-28] MED LIST changes: +CLEOCIN HCL300 MG PO; +HYDROCODONE-ACE15 ML PO; +PROBIOTIC1 EAC1 PO; +VANCOMYCIN1 GM/1001 IV
== END | disposition home or self-care (01) ==
LOC: OPONC 10:48
DX: Z45.2 Encounter for adjustment and management of vascular access device (principal)
CPT/HCPCS: 91018

== ENCOUNTER 2017-01-13 21:06 | Inpatient (IN) | payer OTHER ==
[~2017-01-13] VITALS: Ht 165.1 cm; Wt 62.0 kg
--- NOTE | ~2017-01-13 | EKG ---
[place] [address] [facility] 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 : 1950 Requested By: Luis Hernandez Order Number: [id number] MD: Renny Maza Measurements Intervals [place] Rate: 63 P: 56 VT: 199 QRS: -38 QRSD: 105 T: 5 QT: 416 QTc: 426 Interpretive Statements Sinus rhythm Left axis deviation Compared to ECG 11/16/2016 23:47:47 No significant changes Electronically Signed On 01-14-2017 8:49:34 CDT by Renny Maza [email or web address] <ELECTRONICALLY SIGNED> By: Renny Maza MD, [facility] 01/14/17 0849 3 3 Renny Maza MD, [facility] /EPI
[2017-01-13 21:09] VITALS: BP 149/86
[2017-01-13 21:56] LABS: URINE BILIRUBIN NEGATIVE (Negative); URINE BLOOD NEGATIVE (Negative); URINE COLOR YELLOW; URINE GLUCOSE-RANDOM* NEGATIVE (Negative); URINE KETONES NEGATIVE (Negative); URINE LEUKOCYTES-REFLEX TRACE (Negative); URINE PROTEIN (DIPSTICK) NEGATIVE (Negative); URINE SPECIFIC GRAVITY <= 1.005 (1.003-1.035); URINE UROBILINOGEN 0.2 E.U./dl (0.2-1.0)
[2017-01-13 22:15] LABS: ABSOLUTE NEUTROPHILS 5.1 thou/uL (1.4-8.2); BASOPHILS 0.9 % (0.0-2.0); EOSINOPHILS 1.5 % (0.0-3.0); HEMOGLOBIN 10.9 gm/dL (12.0-15.0); LYMPHOCYTES 22.1 % (24.0-44.0); MCH 27.5 pg (26.0-34.0); MCHC 33.1 g/dL (28.0-37.0); MCV 83.2 fL (80.0-100.0); MONOCYTES 6.1 % (1.0-8.0); PLATELET COUNT 320 thou/uL (150-400); POLYS 69.4 % (36.0-66.0); RBC 3.97 mil/uL (4.20-5.00); RDW 16.3 % (10.5-14.5); WBC 7.4 thou/uL (4.0-11.0)
[2017-01-13 22:16] LABS: MANUAL DIFF NO
[2017-01-13 22:21] LABS: CALCIUM 9.4 mg/dL (8.5-10.1); CREATININE 0.7 mg/dL (0.6-1.0); POTASSIUM 3.7 mmol/L (3.5-5.1)
[2017-01-13 22:25] LABS: ALBUMIN 3.6 g/dL (3.4-5.0); TOTAL BILIRUBIN 0.3 mg/dL (<0.1-1.0); TOTAL PROTEIN 7.9 g/dL (6.4-8.2)
[2017-01-14 01:20] VITALS: BP 128/66
[2017-01-14 01:56] VITALS: BP 122/62
[2017-01-14 03:48] VITALS: BP 119/65
[2017-01-14 05:37] LABS: ABSOLUTE NEUTROPHILS 3.4 thou/uL (1.4-8.2); EOSINOPHILS 1.9 % (0.0-3.0); HEMATOCRIT 31.3 % (37.0-47.0); HEMOGLOBIN 10.6 gm/dL (12.0-15.0); LYMPHOCYTES 35.8 % (24.0-44.0); MCHC 33.7 g/dL (28.0-37.0); MCV 83.3 fL (80.0-100.0); MONOCYTES 7.9 % (1.0-8.0); PLATELET COUNT 291 thou/uL (150-400); POLYS 53.4 % (36.0-66.0); RBC 3.76 mil/uL (4.20-5.00); RDW 16.3 % (10.5-14.5); WBC 6.4 thou/uL (4.0-11.0)
[2017-01-14 05:39] LABS: MANUAL DIFF NO
[2017-01-14 08:00] VITALS: BP 121/75
[2017-01-14 09:49] VITALS: BP 121/75
[2017-01-14 10:46] VITALS: BP 121/75
== END 2017-01-14 10:45 | disposition home or self-care (01) | DRG 389 ==
LOC: ER 21:06 → EROBS 01-14 00:22 → 4S 01-14 00:22
PROVIDERS: Emergency Medicine; Nurse Practitioner Family
DX: K56.60 Unspecified intestinal obstruction (principal); L02.211 Cutaneous abscess of abdominal wall; G20 Parkinson's disease; E03.9 Hypothyroidism, unspecified; G89.4 Chronic pain syndrome; E78.00 Pure hypercholesterolemia, unspecified; M19.90 Unspecified osteoarthritis, unspecified site; F17.210 Nicotine dependence, cigarettes, uncomplicated; K59.00 Constipation, unspecified; E78.5 Hyperlipidemia, unspecified; E05.00 Thyrotoxicosis with diffuse goiter without thyrotoxic crisis or storm; I10 Essential (primary) hypertension; Z79.899 Other long term (current) drug therapy; Z88.1 Allergy status to other antibiotic agents; Z88.8 Allergy status to other drugs, medicaments and biological substances; Z86.73 Personal history of transient ischemic attack (TIA), and cerebral infarction without residual deficits; Z93.6 Other artificial openings of urinary tract status; Z93.3 Colostomy status; Z86.14 Personal history of Methicillin resistant Staphylococcus aureus infection; Z82.49 Family history of ischemic heart disease and other diseases of the circulatory system
CPT/HCPCS: 10100

== ENCOUNTER 2018-08-22 18:12 | Inpatient (IN) | payer OTHER ==
[~2018-08-22] VITALS: Ht 165.1 cm; Wt 59.0 kg
[~2018-08-22 18:12] MED LIST changes: +ACIDOPHILUS1 EAC4 PO; +ASPIR 8181 MG PO; +B-12500 MCG PO; +ENZYME DIGEST1 EACH PO; +GAS RELIEF80 MG PO; +IRON325 PO; +LIDODERM1 EACH TOP; +LIPITOR80 MG PO; +MELATONIN5 M4 PO; +MIRAPEX 0.250.25 M1 PO; +NITROSTAT0.4 M1 SUBLING; +REQUIP 1 MG TABL1 M1 PO; +ROXICODONE5 M2 PO; +SINEMET 25-1001 EAC1 PO; +SYNTHROID150 MCG PO; +TRAZODONE HCL50 MG PO; +VITAMINC500 PO
[2018-08-22 18:13] VITALS: BP 132/83
[2018-08-22 19:04] LABS: ABSOLUTE NEUTROPHILS 5.1 thou/uL (1.4-8.2); BASOPHILS 0.7 % (0.0-2.0); EOSINOPHILS 1.3 % (0.0-3.0); HEMATOCRIT 33.3 % (37.0-47.0); HEMOGLOBIN 11.3 gm/dL (12.0-15.0); LYMPHOCYTES 28.9 % (24.0-44.0); MCH 30.8 pg (26.0-34.0); MCV 90.6 fL (80.0-100.0); MONOCYTES 7.4 % (1.0-8.0); PLATELET COUNT 234 thou/uL (150-400); POLYS 61.7 % (36.0-66.0); RBC 3.67 mil/uL (4.20-5.00); RDW 14.2 % (10.5-14.5); WBC 8.2 thou/uL (4.0-11.0)
[2018-08-22 19:09] LABS: CALCIUM 8.6 mg/dL (8.5-10.1); CREATININE 0.6 mg/dL (0.6-1.0); POTASSIUM 4.1 mmol/L (3.5-5.1)
[2018-08-22 19:15] LABS: ALBUMIN 3.3 g/dL (3.4-5.0); TOTAL BILIRUBIN 0.3 mg/dL (<0.1-1.0); TOTAL PROTEIN 6.7 g/dL (6.4-8.2)
[2018-08-22 19:26] LABS: URINE BILIRUBIN NEGATIVE (Negative); URINE BLOOD TRACE (Negative); URINE CLARITY CLEAR; URINE COLOR YELLOW; URINE GLUCOSE-RANDOM* NEGATIVE (Negative); URINE KETONES NEGATIVE (Negative); URINE NITRITE-REFLEX NEGATIVE (Negative); URINE PROTEIN (DIPSTICK) NEGATIVE (Negative); URINE UROBILINOGEN 0.2 E.U./dl (0.2-1.0)
[2018-08-22 19:35] LABS: URINE LEUKOCYTES-REFLEX 1+ (Negative)
[2018-08-22 19:36] LABS: CASTS None Seen /LPF (None Seen); CRYSTALS None Seen /LPF (None Seen); SQUAMOUS 0-3 Few /LPF (0-3); URINE WBC-REFLEX 0-5 Rare /HPF (0-5)
[2018-08-22 19:37] LABS: BACTERIA-REFLEX 1-9 Few /HPF (None Seen); URINE RBC 0-2 Rare /HPF (0-2)
[2018-08-22 20:32] VITALS: BP 139/61
[2018-08-22 20:40] VITALS: BP 158/82
--- NOTE | 2018-08-23 02:25 | NUR ---
PT ARRIVED AT 2044 BY ED PT ORIENTATED TO ROOM AND CALL LIGHT PT PROVIDED INFO FOR HEALTH ASSESMENT PT WAS UP MOST OF THE NIGHT ZOFRAN AND REGLAN GIVEN FOR NAUSEA.
[2018-08-23 03:40] VITALS: BP 154/82
[2018-08-23 07:22] VITALS: BP 127/72
--- NOTE | 2018-08-23 10:46 | EKG ---
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: CONNOR : 1950 Requested By: Mc Springer Order Number: [id number] MD: Stan Sunshine Measurements Intervals [place] Rate: 61 P: 59 LA: 163 QRS: 19 QRSD: 95 T: 27 QT: 415 QTc: 418 Interpretive Statements Sinus rhythm Probable left atrial enlargement Borderline low voltage, extremity leads Compared to ECG 01/14/2017 07:34:53 Left-axis deviation no longer present Electronically Signed On 08-23-2018 10:46:16 DIAGNOSTIC CARDIAC SONOGRAPHER by Stan Sunshine [email or web address] <ELECTRONICALLY SIGNED> By: Stan Sunshine MD 08/23/18 1046 17 17 Stan Sunshine MD /SADA
[2018-08-23 14:17] VITALS: BP 137/72
--- NOTE | 2018-08-23 18:00 | NUR ---
PT ASSESSED AT START OF SHIFT. MORPHINE GIVEN BY THE [facility] NURSE WHICH HELPED THIS AM. PT HAD NAUSEA UNTIL NOON AND THEN WAS ABLE TO TAKE HER MEDS. PT HAS TROUBLE W/ RESTLESS LEGS AND IT PROGRESSED THROUGHOUT THE SHIFT EVEN AFTER TAKING THE MEDS. NAUSEA MUCH BETTER. NO INCREASE IN BM OVER THE SHIFT.
[2018-08-23 19:29] VITALS: BP 129/67
--- NOTE | 2018-08-24 03:11 | NUR ---
PT GIVEN MORPHINE FOR PAIN AND ATIVAN FOR SPASMS PT STATED THAT HELPED MANAGE PAIN AND SPASMS WHILE PT WAS NAUSEATED NO EMISIS DURING THE NIGHT.
[2018-08-24 04:10] VITALS: BP 149/85
[2018-08-24 05:54] LABS: HEMATOCRIT 33.9 % (37.0-47.0); HEMOGLOBIN 11.4 gm/dL (12.0-15.0); MCH 30.1 pg (26.0-34.0); MCHC 33.6 g/dL (28.0-37.0); MCV 89.4 fL (80.0-100.0); RBC 3.8 mil/uL (4.20-5.00); RDW 13.9 % (10.5-14.5); WBC 5.8 thou/uL (4.0-11.0)
[2018-08-24 06:02] LABS: CALCIUM 8.7 mg/dL (8.5-10.1); CREATININE 0.6 mg/dL (0.6-1.0); POTASSIUM 3.8 mmol/L (3.5-5.1)
[2018-08-24 07:40] VITALS: BP 154/82
[2018-08-24 15:19] VITALS: BP 127/60
[2018-08-24 19:27] VITALS: BP 153/78
[2018-08-25 03:55] VITALS: BP 137/72
--- NOTE | 2018-08-25 05:17 | NUR ---
ASSUMED CARE AT 1900, ASSESSMENT COMPLETED. PT C/O GENERALIZED ABD PAIN, WORSE AROUND THE COLOSTOMY SITE; ALSO REPORTS NAUSEA AND NOT WANTING TO DRINK MUCH LIQUIDS D/T DRY HEAVES. DENIES SOB. SMALL AMOUNT OF THICK, STICKY STOOL IN THE COLOSTOMY BAG, MOSTLY COLLECTED RIGHT AGAINST THE STOMA. PT ALSO CONCERNED ABOUT SOME OF HER HOME MEDS THAT HAVE NOT BEEN RESTARTED; OBTAINED ORDERS TO RESUME SYNTHROID, SERTRALINE, AND PRN CLONAZEPAM AND TO D/C IV LORAZEPAM. HAVE GIVEN IV MORPHINE x2, PO ZOFRAN x1, AND IV ZOFRAN x1 OVERNIGHT. INITIAL ADMITTING URINE SPECIMEN RESULTED WITH STAPH BACTERIA; DISCUSSED FINDING WITH ABEL MERCEDES, OPTED TO OBTAIN A NEW SPECIMEN VIA STRAIGHT CATH. SENT TO LAB. NO OTHER CONCERNS, WILL CONTINUE TO MONITOR.
[2018-08-25 06:05] LABS: URINE BILIRUBIN NEGATIVE (Negative); URINE BLOOD TRACE (Negative); URINE CLARITY CLEAR; URINE COLOR YELLOW; URINE GLUCOSE-RANDOM* NEGATIVE (Negative); URINE KETONES NEGATIVE (Negative); URINE LEUKOCYTES-REFLEX NEGATIVE (Negative); URINE NITRITE-REFLEX NEGATIVE (Negative); URINE PROTEIN (DIPSTICK) NEGATIVE (Negative); URINE SPECIFIC GRAVITY 1.015 (1.005-1.035); URINE UROBILINOGEN 0.2 E.U./dl (0.2-1.0)
[2018-08-25 08:39] VITALS: BP 163/72
[2018-08-25 15:13] VITALS: BP 143/72
--- NOTE | 2018-08-25 15:52 | NUR ---
PT ADMITTED RELATED TO NAUSEA VOMITTING. CM REVIEWED CHART AND SPOKE WITH CARE TEAM. CM MET WITH PT AT BEDSIDE THIS DAY. PT IS A&O X4. CM ROLE INTRODUCED. PT INDICATED SHE LIVES IN A HOUSE ALONE WITH NO STEPS TO ENTER AND NO STEPS INSIDE. 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 PT INDICATED SHE HAS A FWW SHOULD SHE NEED IT AT HOME AND THAT SHE HAD BEEN ON SERVICE WITH [facility] IN THE PAST. PT INDICATED HE PLANS TO RETURN HOME ONCE MEDICALLY STABLE. CM TO FOLLOW INDICATED WITH DC PLANNING.
[2018-08-25 19:25] VITALS: BP 149/76
--- NOTE | 2018-08-26 02:49 | NUR ---
PT GIVEN MORPHINE FOR PAIN PT MORPHINE WAS ABLE TO CONTROL PTS PAIN AND PT WAS ABLE TO GET SOME SLEEP DURING THE NIGHT.
[2018-08-26 05:16] VITALS: BP 124/59
[2018-08-26 05:30] LABS: HEMATOCRIT 35.3 % (37.0-47.0); HEMOGLOBIN 11.7 gm/dL (12.0-15.0); MCH 29.8 pg (26.0-34.0); MCHC 33.1 g/dL (28.0-37.0); MCV 90.1 fL (80.0-100.0); RBC 3.92 mil/uL (4.20-5.00); RDW 13.7 % (10.5-14.5); WBC 5.3 thou/uL (4.0-11.0)
[2018-08-26 05:36] LABS: CALCIUM 8.8 mg/dL (8.5-10.1); CREATININE 0.6 mg/dL (0.6-1.0); POTASSIUM 3.5 mmol/L (3.5-5.1)
[2018-08-26 08:05] VITALS: BP 111/64
--- NOTE | 2018-08-26 13:46 | NUR ---
TOWARDS POC PT A/O X4, VSS,AFEBRILE. PAIN MANAGED BY MEDS. PT WENT FOR SURGERY AT 12OOH. WILL CONTINUE TO MONITOR.
--- NOTE | 2018-08-26 14:57 | NUR ---
PT HAD GONE FOR SURGERY THIS DAY. CM TO FOLLOW INDICATED WITH DC PLANNING.
[2018-08-26 15:10] VITALS: BP 161/66
[2018-08-26 16:36] VITALS: BP 147/73
[2018-08-26 20:41] VITALS: BP 91/44
--- NOTE | 2018-08-27 03:37 | NUR ---
PT RESTED THROUGHOUT THE NIGHT PT GIVEN IV MORPHINE FOR PAIN PAIN MEDICATION WAS ABLE TO HELP MANAGE PTS PAIN AND PT WAS ABLE TO GET SOME REST IV DID INFILLTRATE DURING SHIFT HOWEVER. IV TAKEN OUT.
[2018-08-27 05:58] VITALS: BP 101/60
[2018-08-27 07:20] VITALS: BP 112/68
[2018-08-27] MEDS ORDERED: MIRALAX17 GM PO (14:32)
[2018-08-27 14:40] VITALS: BP 112/68
--- NOTE | 2018-08-27 14:56 | NUR ---
CARE TEAM INDICATED THAT PT IS MEDICALLY STABLE FOR DISHCARGE HOME THIS DAY. CM MET WITH PT AT BEDSIDE AND SHE INDICATED SHE DIDN'T HAVE TRANSPORT HOME. PT INDICATED SHE COULD PAY FOR A CAB IF ARRANGED. CM GOT QUOTE FROM NURSE OFFICE CAB OF ABOUT $75.00. PT INDICATED SHE COULDN'T AFFORD THAT. CM REQUESTED AND RECIEVED PERMISSION TO [facility]OU[facility]ER NURSE OFFICE CAB RIDE HOME FOR PT. VOUCHER # [phone]. NO OTHER CM INTERVETNION INDICATED AT THIS TIME. CASE CLOSED.
--- NOTE | 2018-08-27 15:36 | NUR ---
DIS PT IS FOR DC HOME TODAY, HEART MONITOR AND IV DC'D. DC PACKET PROVIDED.
--- NOTE | 2018-08-27 15:52 | NUR ---
matt received phone call for rox with [facility] who wanted to discuss pt dcp and offer assisted if needed, # [phone].
== END 2018-08-27 15:57 | disposition home or self-care (01) | DRG 395 ==
LOC: ER 18:12 → 4W 19:42 → EROBS 19:42 → 4W 20:56 → ENTRNSPT 08-27 15:29 → EDTRNSPTSTS 08-27 15:31 → 4W 08-27 15:57
PROVIDERS: Emergency Medicine; Nurse Practitioner Acute Care; ADMIT Internal Medicine
DX: K43.5 Parastomal hernia without obstruction or gangrene (principal); E16.2 Hypoglycemia, unspecified; M50.30 Other cervical disc degeneration, unspecified cervical region; E03.9 Hypothyroidism, unspecified; E78.5 Hyperlipidemia, unspecified; E05.00 Thyrotoxicosis with diffuse goiter without thyrotoxic crisis or storm; G89.29 Other chronic pain; K43.2 Incisional hernia without obstruction or gangrene; G20 Parkinson's disease; F17.210 Nicotine dependence, cigarettes, uncomplicated; Z87.820 Personal history of traumatic brain injury; Z93.3 Colostomy status; Z90.49 Acquired absence of other specified parts of digestive tract; Z90.710 Acquired absence of both cervix and uterus; Z86.14 Personal history of Methicillin resistant Staphylococcus aureus infection; Z79.82 Long term (current) use of aspirin; Z79.899 Other long term (current) drug therapy; Z88.1 Allergy status to other antibiotic agents; Z88.8 Allergy status to other drugs, medicaments and biological substances; Z82.49 Family history of ischemic heart disease and other diseases of the circulatory system
CPT/HCPCS: 10045

== ENCOUNTER 2018-08-29 05:15 | Inpatient (IN) | payer OTHER ==
[~2018-08-29] VITALS: Ht 165.1 cm; Wt 62.6 kg
[~2018-08-29 05:15] MED LIST changes: +MIRALAX17 GM PO
[2018-09-05] MEDS ORDERED: MIRALAX17 GM PO (12:59)
[2018-09-09] VITALS (8 sets, daily range): BP systolic 100–117; BP diastolic 47–68
[2018-09-09 16:58] LABS: HEMATOCRIT 34.3 % (37.0-47.0); HEMOGLOBIN 11.4 gm/dL (12.0-15.0); MCH 30.6 pg (26.0-34.0); MCHC 33.3 g/dL (28.0-37.0); MCV 91.9 fL (80.0-100.0); RBC 3.73 mil/uL (4.20-5.00); RDW 14.1 % (10.5-14.5); WBC 12.7 thou/uL (4.0-11.0)
[2018-09-09 17:07] LABS: CALCIUM 9.1 mg/dL (8.5-10.1); CREATININE 0.8 mg/dL (0.6-1.0); MAGNESIUM 1.9 mg/dL (1.8-2.4); POTASSIUM 4.7 mmol/L (3.5-5.1)
--- NOTE | 2018-09-09 20:59 | NUR ---
PATIENT ARRIVED FROM PACU ALERT AND ORIENTED. SHE IS VERY PLEASANT. NURSE INITIATED TURRET LATHE MACHINIST PUMP, EDUCATION PROVIDED. INTAKE AND OUTPUT DOCUMENTED. ADMISSION ASSESSMENT PERFORMED. DRAINS EXPLAINED. VITAL SIGNS DOCUMENTED. REPORT GIVEN TO MACHINE SHORTHAND TEACHER RN FOR CONTINUATION OF CARE.
[2018-09-10 00:09] VITALS: BP 96/53
[2018-09-10 03:26] VITALS: BP 96/51
[2018-09-10 05:19] LABS: HEMATOCRIT 31.6 % (37.0-47.0); HEMOGLOBIN 10.5 gm/dL (12.0-15.0); MCH 30.6 pg (26.0-34.0); MCHC 33.4 g/dL (28.0-37.0); MCV 91.6 fL (80.0-100.0); RBC 3.45 mil/uL (4.20-5.00)
[2018-09-10 05:31] LABS: CALCIUM 8.7 mg/dL (8.5-10.1); CREATININE 0.8 mg/dL (0.6-1.0); POTASSIUM 4.5 mmol/L (3.5-5.1)
--- NOTE | 2018-09-10 07:27 | NUR ---
Pain well controlled with PIPE FITTER MARINE dilaudid. Pt. stated she slept well and slept hard and when she woke up she could feel all the soreness. Encouraged to use PIPE FITTER MARINE till she's comfortable. Able to turn self from side to side. Tolerating RA well with no respiratory distress. Apnea/CO2 monitor in placed. Has been using IS when awake and able to get it up to 2000 ml. She has been calm and cooperative. Afebrile. Isolation dc'd ( MRSA nares negative ). No c/o nausea or vomiting and tolerated liquids.Abdominal incision with prevena intact. Right GLORIA drain had 75 ml dge this shift ( 35 ml , 15 ml, 25 ml ) sanguinous at beginning then SS this am. Dubose had 1350 ml light yellow urine this shift. SCD's on and bed alarm for safety. Will continue to monitor.
[2018-09-10 08:40] VITALS: BP 84/47
--- NOTE | 2018-09-10 09:57 | NUR ---
on-going assessment: CM REVIEWED CHART AND MET WITH PATIENT AT THE BEDSIDE. PT IS ALERT AND ORIENTED X4. PT WAS ADMITTED WITH PARASTOMAL HERNIA. PT REPORTS SHE LIVES IN A HOME ALONE. PT REPORTS NO STEPS TO ENTER OR THAT SHE HAS TO USE ONCE INSIDE. PT REPORTS SHE AMBULATES INDEPENDENTLY BUT DOES HAVE A WALKER AT HOME IF NEEDED. PT REPORTS SHE IS INDEPENDENT WITH ADLS AND AMBULATION. PT REPORTS SHE HAS BEEN TO [facility] IN THE PAST AND HAS HAD [facility]. CM DISCUSSED ROLE. PT ANTICIPATE SHE MAY BENEFIT FROM HH AT DISCHARGE AND WANTED A REFERRAL MADE TO [facility], CM SENT REFERRAL. PT/OT PENDING. CM WILL CONTINUE TO FOLLOW TO ASSIST NEEDED.
--- NOTE | 2018-09-10 16:05 | NUR ---
ASSUMED PATIENT CARE AT 0715. A&OX4. ABDOMINAL PAIN. ON HYDROMORPHONE SOLAR ELECTRIC INSTALLER FOR PAIN. MENA IN PLACE WITH ORDERS TO DC TOMORROW MORNING. GLORIA DRAIN PUTTING OUT SEROSANGUINOUS DRAINAGE. DIET ADVANCED TO REGULAR. PATIENT IS PASSING GAS THROUGH STOMA. NO OTHER OUTPUT NOTED FROM COLOSTOMY THOUGH. WALKED WITH THERAPY TODAY. PATIENT PROGRESSING TOWARDS GOALS.
[2018-09-10 16:10] VITALS: BP 106/53
[2018-09-10 20:10] VITALS: BP 101/57
[2018-09-11 00:07] VITALS: BP 100/51
[2018-09-11 00:08] LABS: GLYCOHEMOGLOBIN (HGB A1C) 5.7 % (4.8-5.6)
--- NOTE | 2018-09-11 04:06 | NUR ---
PATIENT IS ALERT AND ORIENTED. PATIENT IS ON A CLERICAL RECEPTIONIST PUMP PATIENT IS ON CAPINOGARPHY PER POLICY. PATIENTS MENA IS TO BE DC THIS AM. PATIENT IS UP TIME ONE. PATIENT HAD GOOD OUT PUT FROM COLOSTOMY THIS SHIFT. LIGHT BROWN AND LOOSE. PATIENT HAS HAD SOME NAUSEA TREATED WITH MEDICATION. PATIENT HAS A RLQ GLORIA DRAIN. PATIENT HAS A MIDLINE INICISION WITH WOUND VAC INTACT NO REDDNESS. PATIENT IS ON 2L NC. PATIENT HAD A LOW TEMP WCM. PATIENT IS RESTING COMFORTABLY IN BED. WCM.
[2018-09-11 04:40] VITALS: BP 104/59
[2018-09-11 05:31] LABS: ABSOLUTE NEUTROPHILS 7.7 thou/uL (1.4-8.2); BASOPHILS 0.3 % (0.0-2.0); EOSINOPHILS 0.3 % (0.0-3.0); HEMATOCRIT 31.1 % (37.0-47.0); HEMOGLOBIN 10.2 gm/dL (12.0-15.0); LYMPHOCYTES 15.5 % (24.0-44.0); MCH 30.2 pg (26.0-34.0); MCHC 32.9 g/dL (28.0-37.0); MCV 91.9 fL (80.0-100.0); MONOCYTES 6.8 % (1.0-8.0); PLATELET COUNT 218 thou/uL (150-400); POLYS 77.1 % (36.0-66.0); RBC 3.39 mil/uL (4.20-5.00); RDW 14.2 % (10.5-14.5)
[2018-09-11 05:42] LABS: CALCIUM 8.9 mg/dL (8.5-10.1); CREATININE 0.7 mg/dL (0.6-1.0); POTASSIUM 4.1 mmol/L (3.5-5.1)
[2018-09-11 07:25] VITALS: BP 112/54
--- NOTE | 2018-09-11 14:01 | NUR ---
ASSUMED PATIENT CARE AT 0715. A&OX4. COMPLAINTS OF ABDOMINAL PAIN. HAVING NAUSEA OVERNIGHT AND THIS MORNING. PATIENT IS A CURRENT SMOKER. HOSPITALIST ORDERED A NICOTINE PATCH. PATIENTS NAUSEA IS MUCH BETTER AFTER APPLICATION OF PATCH. VOIDED X1 SINCE MENA REMOVAL. URINE DARK YELLOW. PATIENT ENCOURAGED TO INCREASE ORAL FLUID INTAKE. IS ENCOURAGED. GLORIA DRAIN NOT PUTTING OUT MUCH DRAINAGE. PREVENA IN PLACE OVER MIDLINE INCISION. PROGRESSING TOWARDS GOALS.
--- NOTE | 2018-09-11 14:05 | NUR ---
ON-GOING ASSESSMENT: PT IS 2 DAYS S/P EX LAP. PT CONTINUES TO HAVE PAIN AND IS USING PAPER FEEDER PUMP. PT IS STILL HOPEFUL TO POSSIBLY RETURN HOME W BUT WILL SEE HOW PATIENT PROGRESSES. CM RECEIVED A CALL FROM [facility] STATING THEY HAD PATIENT IN THE PAST BUT HER INSURANCE HAS CHANGED SINCE THEN AND THEY ARE NOT IN NETWORK WITH HER INSURANCE. PT STATES SHE HAS NO PREFERENCE OF HH. CM REACHED OUT TO [facility] TO SEE IF THEY ACCEPT PATIENT INSURANCE AND THEY STATE THEY WOULD HAVE TO RUN IT TO SEE. CM FAXED REFERRAL TO [facility].
[2018-09-11 15:40] VITALS: BP 90/49
[2018-09-11 20:10] VITALS: BP 111/48
[2018-09-12 05:15] VITALS: BP 98/48
[2018-09-12 05:55] LABS: ABSOLUTE NEUTROPHILS 8.1 thou/uL (1.4-8.2); BASOPHILS 0.7 % (0.0-2.0); EOSINOPHILS 0.8 % (0.0-3.0); HEMATOCRIT 28.6 % (37.0-47.0); HEMOGLOBIN 9.7 gm/dL (12.0-15.0); LYMPHOCYTES 17.2 % (24.0-44.0); MCH 31.2 pg (26.0-34.0); MCV 91.7 fL (80.0-100.0); PLATELET COUNT 194 thou/uL (150-400); POLYS 75.3 % (36.0-66.0); RBC 3.12 mil/uL (4.20-5.00); RDW 13.9 % (10.5-14.5); WBC 10.7 thou/uL (4.0-11.0)
--- NOTE | 2018-09-12 06:02 | NUR ---
PLEASANT AND FRIENDLY. PAIN WITH MOVEMENT, DARIEN WHEN GETTING UP TO THE BSC. SHE IS ONLY USING MINIMAL DOSAGE OF DILAUDID PS. SHE DID TAKE A PO HYDROCODONE AT BEDTIME WHICH HELPED CONTROL HER PAIN. CAREPLAN REVIEWED,SHE IS PROGRESSING TOWARD DISCHARGE GOALS.
[2018-09-12 06:07] LABS: CREATININE 0.6 mg/dL (0.6-1.0); POTASSIUM 3.8 mmol/L (3.5-5.1)
[2018-09-12 06:40] VITALS: BP 90/51
[2018-09-12 07:56] VITALS: BP 110/50
[2018-09-12 13:06] VITALS: BP 110/50
--- NOTE | 2018-09-12 13:07 | NUR ---
ASSESSMENT: CM REVIEWED CHART AND SPOKE WITH ATTENDING. PT IS STILL ON SERVICE OFFICER PAIN PUMP. CM SPOKE WITH ATTENDING AND PT IS DOING WELL WITH PHYSICAL THERAPY AND THEY ARE RECOMMENDING HOME WITH HH. CM SPOKE WITH [facility] WHO STATES THEY CAN ACCEPT THE PATIENT AT TIME OF DISCHARGE FOR HOME HEALTH SERVICES. ATTENDING IS AWARE. IF PATIENT IS MEDICALLY STABLE OVER THE WEEKEND CONTACT [facility] AT [phone] AND FAX DISCHARGE ORDERS/SUMMARY TO [facility] FAX [phone] TO NOTIFY.
--- NOTE | 2018-09-12 16:12 | NUR ---
ASSUMED PATIENT CARE AT 0715. A&OX4. COMPLAINTS OF ABDOMINAL PAIN. PATIENT WAS WANTING TO TAKE OXY INSTEAD OF NORCO WITH POLE CLASSIFIER PUMP. PAIN MEDICATION DISCUSSED WITH SURGEONS STAFF EDUCATOR. POLE CLASSIFIER PUMP DC'D AND PATIENT STARTED ON OXY TID AND HAS NORCO FOR BREAKTHROUGH PAIN. PATIENT PROGRESSING WELL WITH THERAPY. PATIENT IS CONCERNED ABOUT DISCHARGE HOME WITH DRESSING AND GLORIA DRAIN. PLAN IS TO DISCHARGE HOME WITH HOME HEALTH WHEN READY. [facility] UNABLE TO ACCEPT DUE TO HIGH FUNCTIONALITY. PROGRESSING TOWARDS GOALS.
--- NOTE | 2018-09-12 16:23 | NUR ---
PATIENT SEEN BY [employer], WHO DETERMINED THAT PATIENT IS A GOOD CANDIDATE FOR ACUTE REHAB SERVICES. AUTHORIZATION INITIATED 09/12/18. ACCORDING TO INSURANCE COMPANY, NO AUTHORIZATIONS WILL BE GIVEN OVER THE WEEKEND. WILL ANTICIPATE SATURDAY ADMISSION IF AUTH IS RECEIVED AND PATIENT IS MEDICALLY READY FOR DISCHARGE.
[2018-09-12 16:33] VITALS: BP 93/49
[2018-09-12 19:50] VITALS: BP 111/48
[2018-09-13 04:44] VITALS: BP 96/49
--- NOTE | 2018-09-13 04:49 | NUR ---
PT MAKING PROGRESS TOWARDS GOALS. HAS BEEN TAKING PO FLUIDS WITHOUT REPORTED COMPLAINT. HAS DENIED ANY NAUSEA OVERNIGHT. X1 REQUEST FOR PAIN MEDICATION LAST NIGHT AND PT ONLY WANTED ONE OXYCODONE INSTEAD OF TWO. THIS AM PT STATES SHE WILL TRY TO WAIT UNTIL A LITTLE LATER THIS MORNING TO TAKE THE NEXT PAIN MED. INSTRUCTED TO CALL IF SHE IS UNABLE TO WAIT THAT LONG.
[2018-09-13 08:07] VITALS: BP 109/55
[2018-09-13 12:11] VITALS: BP 139/81
--- NOTE | 2018-09-13 12:48 | NUR ---
PATIENT TRANSFERRED FROM [facility], REPORT FROM SISI/RN. PATIENT ALERT AND ORIENTED X4. PATIENT UP AD JAMIE. PATIENT HAS WOUND VAC TO ABDOMEN AREA, WITH GLORIA DRAIN ON THE RIGHT SIDE. PATIENT C/O PAIN WITH ABDOMEN AREA, SURGERY 09/09/18. PATIENT C/O PAIN WITH ABDOMEN AREA, 01/21, HYDROCODONE 2 TABLETS GIVEN UPON ARRIVAL TO THE UNIT. PATIENT C/O ITCHING WHERE CLEAR DRESSINGS NOTED, BENEDRYL GIVEN PRIOR TO COMING TO THE UNIT. PATIENT HAS COLOSTOMY BAG LEFT SIDE OF ABDOMEN. WILL CONTINUE TO MONITOR.
--- NOTE | 2018-09-13 13:17 | NUR ---
PATIENT ALERT AND ORIENTED AND ABLE TO SAFELY WALK TO BATHROOM AND MANAGE HER COLOSTOMY. RIGHT GLORIA DRAIN OUTPUT OF 70ML THIS AM. WILL NOTIFY DR. SAENZ WHEN HE ROUNDS TODAY. IV TEAM PLACED NEW PIV IN LEFT FOREARM. PATIENT TRANSFERED TO SENIOR SUITES. PATIENT EXPRESSED DESIRE TO EVENTUALLY TRANSFER TO THE REHAB UNIT FOR CONTINUED PROGRESS TO DISCHARGE HOME.
[2018-09-13 19:44] VITALS: BP 94/44
--- NOTE | 2018-09-14 04:08 | NUR ---
PATIENT ALERT AND ORIENTED X4. UP ADLIB IN ROOM. DENIES PAIN. COLOSTOMY AND GLORIA MONITORED PER ORDER. REQUESTED BENEDRYL AND GIVEN WITH GOOD RESULTS. PLEASANT AND COOPERATIVE. WOUND VAC WORKING W/O COMPLICATION. WILL MONITOR. RESTING QUIETLY.
[2018-09-14 07:01] LABS: HEMATOCRIT 27.2 % (37.0-47.0); HEMOGLOBIN 9.1 gm/dL (12.0-15.0); MCH 30.5 pg (26.0-34.0); MCHC 33.5 g/dL (28.0-37.0); RBC 2.98 mil/uL (4.20-5.00); RDW 13.4 % (10.5-14.5); WBC 6.8 thou/uL (4.0-11.0)
[2018-09-14 07:13] LABS: CALCIUM 9.8 mg/dL (8.5-10.1); CREATININE 0.6 mg/dL (0.6-1.0); POTASSIUM 4.1 mmol/L (3.5-5.1)
[2018-09-14 08:00] VITALS: BP 136/60
--- NOTE | 2018-09-14 17:43 | NUR ---
ASSUMED CARE OF AT 0715, PATIENT ALERT AND ORIENTED X 4. PATIENT C/O PAIN WITH ABDOMEN AREA, 3/10 NOT BAD THIS AM. PATIENT HAS LEFT FOREARM IN PLACE, FLUSHED WITH NS AND REMAINS PATENT. PATIENT C/O NAUSEA X 2, ZOFRAN AND COMPAZINE IV GIVEN. PATIENT WAS GIVEN OXYCODONE X1 AND HYDROCODONE X 1 THIS SHIFT. PATIENT HAS AMBULATED IN [place] TODAY, PLAYED [employer] CARDS AT 1400, AND REALLY ENJOYED HERSELF. PATIENT HAS PREVENA DRESSING TO ABDOMEN IN PLACE, C/D/I. PATIENT HAS GLORIA DRAIN TO RIGHT SIDE WITH MODERATE AMT OF DRAINAGE. COLOSTOMY ON LEFT SIDE WITH SOFT STOOL NOTED, BS ACTIVE. WILL CONTINUE TO MONITOR.
[2018-09-14 18:36] VITALS: BP 101/45
--- NOTE | 2018-09-15 05:10 | NUR ---
PATIENT ALERT AND ORIENTED X4. UP ADLIB TO BATHROOM. NO C/O PAIN AT TIME OF NOTE. SELF CARE ON HER COLOSTOMY. GLORIA MONITORED. VAC DRESSING TO ABDOMEN DRY AND INTACT. PLEASANT AND COOPERATIVE WITH CARE. KALLI CASTELLANO.
[2018-09-15 07:28] VITALS: BP 97/51
[2018-09-15 07:28] LABS: HEMATOCRIT 27.4 % (37.0-47.0); HEMOGLOBIN 9.3 gm/dL (12.0-15.0); MCH 30.9 pg (26.0-34.0); RBC 3.01 mil/uL (4.20-5.00); RDW 13.4 % (10.5-14.5); WBC 6.9 thou/uL (4.0-11.0)
--- NOTE | 2018-09-15 14:26 | NUR ---
PT NOW COMPLAINING OF N/V. [facility] INDICATED THAT THEY WERE GOING TO RECONSULT FOLLOWING DECLINE IN FUNCTION. CM FOLLOWING INDICATED WITH DC PLANNING.
--- NOTE | 2018-09-15 16:29 | NUR ---
ON-GOING ASSESSMENT: PT HAD A DECLINE IN HER THERAPY AND [facility] WANTED TO RE-CONSULT ON PATIENT. [facility] FEELS PATIENT IS A GOOD CANIDATE FOR REHAB AND ARE GOING TO START THE INSURANCE AUTH PROCESS. CM WILL CONTINUE TO FOLLOW.
--- NOTE | 2018-09-15 18:00 | NUR ---
ASSUMED CARE OF PATIENT AT 0715, PATIENT ALERT AND ORIENTED X 4. PATIENT UP AD JAMIE. PATIENT C/O NAUSEA AND PAIN AT THIS START OF THE SHIFT. PATIENT VOMITTED X 1 LARGE AMT THIS AM. THIS RN NOTIFIED LUCIAN HALL RETURNED THE CALL, I ASKED FOR ONETIME DOSE OF IV PAIN DUE TO PATIENT UNABLE TO TAKE PO AT THIS TIME. RECEIVED ORDER FOR FENTANYL 50 MCG IV X 1. ALSO SCOP PATCH AND PHENERGAN 25 MG EVERY 6 HOURS. LUCIAN/VIRTUAL CUSTOMER ASSISTANT CAME TO SEE PATIENT RECEIVED ORDERS FOR STOOL SAMPLE, AND PROBIOTIC. PATIENT UNABLE TO EAT LUNCH, BUT ORDERED DINNER AND TOLERATED SMALL AMT. NEW IV SITE RIGHT FOREARM BY IV TEAM. PATIENT HAS RECEIVED ZOFRAN AND COMPAZINE IV THIS SHIFT. WILL CONTINUE TO MONITOR.
[2018-09-15 19:35] VITALS: BP 96/50
--- NOTE | 2018-09-16 07:18 | NUR ---
Pt A/0 X4,up with RW with no problems voiced. Medicated for nausea at HS with no further complaints made,pt ate some pudding before going to sleep. C/o pain to abd @ 8/10 medicated per EMAR with relief reported. Prevena woundvac in place C/D/I.Has a GLORIA on RLQ patent output 15ml sanguineous drainage. Colostomy on the left patent with foul smelling BM.Pt resting quietly at this time with no distress noted.
--- NOTE | 2018-09-16 08:23 | NUR ---
on-going assessment: CM RECEIVED A CALL FROM Suresh HERRERA STATING SHE ATTEMPTED TO SEEK INSURANCE AUTH BUT ITS OUT OF NETWORK.
[2018-09-16 11:13] VITALS: BP 111/59
--- NOTE | 2018-09-16 19:41 | NUR ---
ASSUMED CARE OF PATIENT AT 0715, PATIENT ALERT AND ORIENTED X 4. PATIENT UP AD JAMIE WITH WALKER. PATIENT WORKED WITH PT/OT TODAY. PATIENT CONTINUES TO C/O NAUSEA AND PAIN WITH ABDOMEN, PATIENT HAS RECEIVED HYDROCODONE, OXYCODONE, ZOFRAN IV, COMPAZINE IV, AND PHERNERGEN PO THIS SHIFT. PREVENA DRESSING REMOVED, ERNA IN PLACE, NO REDNESS OR DRAINAGE NOTED OPEN TO AIR. GLORIA DRAIN DISCONTINUED, DRESSING APPLIED TO SITE. COLOSTOMY CHANGED WITH LARGE AMT OF STOOL NOTED 400CC. STOOL SAMPLE STILL PENDING RESULT SENT YESTERDAY. PATIENT HAS RIGHT FOREARM IV IN PLACE, PATIENT RECEIVED NS AT 125CC/HR 500CC X 1, B/P SLIGHTLY LOW, LUCIAN/WRECKING MECHANIC AWARE. PATIENT MAY DISCHARGE TO [facility] IF MEDICALLY STABLE TOMORROW. WILL CONTINUE TO MONITOR.
[2018-09-16 20:29] VITALS: BP 91/34
[2018-09-16 21:45] VITALS: BP 96/56
--- NOTE | 2018-09-17 01:09 | NUR ---
Pt A/OX4,up ad poornima/RW without any problems voiced. C/o nausea with dry hiving medicated with Zofran with relief reported. Pt also offered a snack and ate with no N/V before bedtime. Pt c/o itching around abd incision,benadryl administered with relief reported. Midline incision well approximated with robin in place.Colostomy bag with loose stools,passing flatus. Fluids encouraged r/t BP in the 90's and doing better with oral intake.Encouraged pt to call as needed for help. Call light/personal items within reach.Will continue to monitor pt.
[2018-09-17 06:13] LABS: HEMATOCRIT 27.4 % (37.0-47.0); HEMOGLOBIN 9.3 gm/dL (12.0-15.0); MCH 30.8 pg (26.0-34.0); MCHC 33.9 g/dL (28.0-37.0); RBC 3.01 mil/uL (4.20-5.00); RDW 13.5 % (10.5-14.5); WBC 7.2 thou/uL (4.0-11.0)
[2018-09-17 12:36] VITALS: BP 110/50
--- NOTE | 2018-09-17 12:37 | NUR ---
on-going assessment: CM SPOKE WITH PHYSICAL THERAPIST WHO STATES HE MET WITH PATIENT AND SHE HAS PROGRESSED VERY WELL WITH PT AND FEELS SHE IS SAFE TO GO HOME WITH HH AND SHE DOES NOT WANT TO GO TO ACUTE REHAB ANYMORE. CM MET WITH PATIENT AT THE BEDSIDE. PT PREFERS TO GO HOME WITH HH ([facility]). CM NOTIFIED [facility] OF DISCHARGE TODAY. CM NOTIFIED [facility] AT [facility] THAT PATIENT NOW WANTS TO DISCHARGE HOME. PT REPORTS NO FURTHER QUESTIONS FROM [facility] AT THIS TIME.
[2018-09-17] MEDS ORDERED: ZOFRAN ODT4 MG PO ×2 (15:10)
--- NOTE | 2018-09-25 09:06 | O ---
[facility] [place] [address] OPERATIVE REPORT Name: CATARINO CEDENO Nito Room #: 224-P [place] [facility] M.R.#: [id number] Admission: 09/09/18 ������������������ Attend Phys: Chava Bobo MD, Discharge: 09/17/18 ������������������ Date of : 46 Report #: [id number] THIS REPORT FOR: //name// CC: Patrice Bobo DATE OF SERVICE: 09/09/2018 PREOPERATIVE DIAGNOSIS: Recurrent incarcerated parastomal hernia. POSTOPERATIVE DIAGNOSES: 1. Recurrent incarcerated parastomal hernia. 2. Recurrent incarcerated incisional ventral hernia. PROCEDURES PERFORMED: 1. Exploratory laparotomy with extensive lysis of adhesions. 2. Debridement of ischemic/necrotic abdominal wall fascia. 3. Complex abdominal wall reconstruction with open repair of an incarcerated recurrent incisional and incarcerated recurrent parastomal hernias using bioresorbable mesh. 4. Bilateral component separation. 5. Adjacent tissue transfer closure of the anterior abdominal wall measuring 22 x 18 cm in dimension (396 cm2). 6. Placement of a topical wound VAC device (Prevena). SURGEON: Chava Bobo MD. LICENSED PROSTHETIST: Gregory Garcia MD. ANESTHESIA: General endotracheal anesthesia. ESTIMATED BLOOD LOSS: 20 mL. COMPLICATIONS: None appreciated. SPECIMENS: Necrotic abdominal wall fascia to pathology. INDICATIONS: The patient is a 68-year-old female who has undergone several prior abdominal exploration procedures to repair of parastomal and incisional ventral hernias. The patient's issues all began with complaints of rectal prolapse, treated in 1999 with several perineal procedures as well as a sigmoid resection that was complicated by a leak requiring Jimmy's procedure. The patient has undergone numerous colostomy reversal attempts that were unsuccessful due to a devascularized rectal stump and she has now undergone multiple repairs of her parastomal and incisional ventral hernias due to her colostomy being permanent at this juncture. Unfortunately, the patient has [facility] [address] [place] [address] OPERATIVE REPORT Name: CATARINO CEDENO Room #: 224-P [facility].#: [id number] Admission: 09/09/18 ������������������ Attend Phys: Chava Bobo MD, Discharge: 09/17/18 ������������������ Date of : 46 Report #: [id number] developed a recurrent large parastomal hernia containing loops of small bowel and indication was for repeat exploration. DESCRIPTION OF PROCEDURE: After explaining the risks, benefits, alternatives of the procedure with the patient in detail in the preoperative holding area and obtaining written consent, the patient was brought to the operating room and placed supine on the operating room table. After conducting a thorough timeout procedure verifying correct patient and procedure, the patient was given general endotracheal anesthesia. Once adequate anesthesia was obtained, her SCDs were hooked up to pneumatic compression device and she was given a preoperative dose of antibiotics in line with the SCIP protocol. The patient's abdomen was now prepped and draped in standard surgical sterile fashion after placing a large Duboes catheter with the balloon inflated in the end of her colostomy and covering it with an Ioban. A #10 bladed scalpel was now used to create a longitudinal midline wound following her prior incision site. Electrocautery was used to carry this down through skin and subcutaneous tissues until I arrived upon the anterior aspect of the fascia. It was readily evident there were numerous recurrent incisional hernias containing omentum. I was able to place a finger in one of these and opened the entirety of the fascia in a controlled setting to prevent injury to the underlying structures. Once I had opened the entirety of the fascia, I cleared off the posterior aspect of the abdominal wall, taking down adhesions of small bowel throughout using combination of electrocautery and Metzenbaum scissor dissection. Once I had taken all of these adhesions down, Diallo clamps were placed along the fascia on the left side and the fascia was held medially and skin edges were elevated anteriorly and I cleared off the fascia at the level of the anterior fascia using electrocautery as far lateral as possible. In doing so, I encountered the colostomy, being careful not to injure the colostomy in any way. I was ultimately able to dissect in the subcutaneous plane while applying gentle manual traction internally to reduce the incarcerated loops of small bowel fully. I carried the dissection in the subcutaneous space as far lateral as possible at this juncture. The colostomy itself appeared healthy and uninjured and the parastomal hernia was then suture plicated medially using #1 PDS suture in standard running fashion. This brought the fascial opening snugged to the colostomy without stricturing. I now continued the circumferential dissection at the anterior aspect of the fascia to anteriorly, inferiorly and to the patient's right side to facilitate closure appropriately. Through the course of this dissection, I encountered necrotic and ischemic abdominal wall fascia that required debridement and this was resected and passed off the field. In order to bring the fascia together in a tension-free fashion after plicating the parastomal hernia, I did require bilateral component separation of the external oblique aponeurosis that had scarred down from prior and this was done using electrocautery to score the lateral border of the rectus abdominis muscle bilaterally along the entirety of the muscle that was visualized. This allowed significant medial mobilization. I now closed the midline fascial wound with all the hernias having been opened using looped #1 PDS suture in standard [facility] [address] [place] [address] OPERATIVE REPORT Name: CATARINO CEDENO Room #: 224-P [place] M.R.#: [id number] Admission: 09/09/18 ������������������ Attend Phys: Chava Bobo MD, Discharge: 09/17/18 ������������������ Date of : 46 Report #: [id number] running fashion. Once this had been closed, the parastomal hernia and midline fascial wound were covered with a piece of Phasix mesh measuring 30 x 25 cm in dimension. This was tailored to fit the abdominal wall with a keyhole cut out, which was placed around the colostomy and secured using 0 PDS sutures on the lateral aspect ensuring no stricturing was performed at the level of the colostomy. This was then anchored to the abdominal wall fascia using numerous interrupted 0 PDS sutures as well as 30 mL of Tisseel. I now performed an adjacent tissue transfer closure of the anterior abdominal wall to ensure vascularized tissue overlying. The skin flaps were elevated and counter incisions were made internally to allow for vascularized pedicles of subcutaneous tissue to be medially rotated and anchored down the midline using several interrupted inverted sutures of 3-0 Vicryl in standard fashion. Skin was then closed with 3-0 Vicryl for the dermal layer and skin robin for skin. Topical wound VAC device was then placed overlying the midline wound and a sterile colostomy appliance was applied after removing the Dubose catheter and placing a finger through the colostomy, which showed it to be patent to a subfascial level. At the end of the procedure, all instrument, needle and sponge counts were correct. The patient tolerated the procedure without incident, was awakened in the operating room and transitioned to the recovery room in stable condition with no apparent complications. ��������������������������������������������� <ELECTRONICALLY SIGNED> ���������������������������������������� By: Chava Bobo MD, FACS ��������������������������������������������� 09/25/18 0906 1834 2018 Chava oBbo MD, FACS /nt
== END 2018-09-17 15:52 | disposition home health service (06) | DRG 337 ==
LOC: TBA 05:15 → PRE 05:15 → TBA 09-09 05:23 → 3W 09-09 05:23 → PRE 09-09 10:06 → 3W 09-09 15:40 → SICU 09-13 11:59 → ENTRNSPT 09-17 15:40 → EDTRNSPTSTS 09-17 15:41 → SICU 09-17 15:52
PROVIDERS: Internal Medicine; Registered Nurse; ADMIT Surgery
PROC: 0JB80ZZ Excision of Abdomen Subcutaneous Tissue and Fascia, Open Approach (ICD-10-PCS; principal; 2018-09-09)
PROC: 0DN80ZZ Release Small Intestine, Open Approach (ICD-10-PCS; principal; 2018-09-09)
PROC: 0WUF0JZ Supplement Abdominal Wall with Synthetic Substitute, Open Approach (ICD-10-PCS; principal; 2018-09-09)
PROC: 0JX80ZZ Transfer Abdomen Subcutaneous Tissue and Fascia, Open Approach (ICD-10-PCS; 2018-09-09)
DX: K43.3 Parastomal hernia with obstruction, without gangrene (principal); G20 Parkinson's disease; E78.5 Hyperlipidemia, unspecified; F32.9 Major depressive disorder, single episode, unspecified; I95.9 Hypotension, unspecified; Z60.2 Problems related to living alone; G89.4 Chronic pain syndrome; F41.1 Generalized anxiety disorder; E03.9 Hypothyroidism, unspecified; Z79.82 Long term (current) use of aspirin; Z79.899 Other long term (current) drug therapy; Z93.3 Colostomy status; Z86.73 Personal history of transient ischemic attack (TIA), and cerebral infarction without residual deficits; Z88.1 Allergy status to other antibiotic agents; Z88.8 Allergy status to other drugs, medicaments and biological substances; Z82.49 Family history of ischemic heart disease and other diseases of the circulatory system; Z90.49 Acquired absence of other specified parts of digestive tract; K43.6 Other and unspecified ventral hernia with obstruction, without gangrene
CPT/HCPCS: 10779; 15002; 50010; 50093; 50101; 50386; 50455; 50953; 51412; 51437; 56524; 56525; 56527; 56530; 57092; 57183; 62110; 62900; 70005

== ENCOUNTER 2018-09-21 20:33 | Inpatient (IN) | payer OTHER ==
[~2018-09-21] VITALS: Ht 165.1 cm; Wt 62.1 kg
--- NOTE | ~2018-09-21 | EKG ---
[address] [address] [place] [address] ELECTROCARDIOGRAM REPORT Name: CATARINO CEDENO Room #: [facility]#: [id number] ������������������ Admission: ������������������ Attend Phys: Discharge: ������������������ Date of : 46 Report #: [id number] ����������������������������������������������������������������� [id number] THIS REPORT FOR: //name// [facility] ED Test Date: 2018-09-21 Test Time: 21:14:39 Pat Name: CATARINO BELLOLEY Department: Room: Gender: F Shoes Salesperson: CARLOS : 1950 Requested By: Dash Hickman Order Number: [id number] MD: Measurements Intervals [place] Rate: 73 P: 67 AR: 168 QRS: 29 QRSD: 107 T: 26 QT: 405 QTc: 447 Interpretive Statements Sinus rhythm Borderline low voltage, extremity leads Abnormal R-wave progression, early transition Baseline wander in lead(s) V1 Compared to ECG 08/22/2018 19:18:38 No significant changes [email or web address] ��������������������������������������������� ���������������������������������������� By: ��������������������������������������������� 13 13 Epiphany Epiphany, /EPI
[2018-09-21 20:34] VITALS: BP 142/49
[2018-09-21 21:01] LABS: ABSOLUTE NEUTROPHILS 10.3 thou/uL (1.4-8.2); EOSINOPHILS 1.6 % (0.0-3.0); HEMATOCRIT 27.9 % (37.0-47.0); HEMOGLOBIN 9.4 gm/dL (12.0-15.0); LYMPHOCYTES 14.1 % (24.0-44.0); MCH 30.5 pg (26.0-34.0); MCHC 33.6 g/dL (28.0-37.0); MCV 90.8 fL (80.0-100.0); MONOCYTES 4.5 % (1.0-8.0); PLATELET COUNT 553 thou/uL (150-400); POLYS 78.8 % (36.0-66.0); RBC 3.08 mil/uL (4.20-5.00); WBC 13.1 thou/uL (4.0-11.0)
[2018-09-21 21:25] LABS: ANION GAP 11 mmol/L (7-16); BUN 15 mg/dL (7-18); CHLORIDE 100 mmol/L (98-107); CO2 25 mmol/L (21-32); CREATININE 0.7 mg/dL (0.6-1.0); GLUCOSE 112 mg/dL (74-106); POTASSIUM 3.7 mmol/L (3.5-5.1); SODIUM 136 mmol/L (136-145)
[2018-09-21 21:34] LABS: ALBUMIN 3.4 g/dL (3.4-5.0); LIPASE 63 U/L (73-393); SGOT 17 U/L (15-37); SGPT 12 U/L (30-65); TOTAL BILIRUBIN 0.3 mg/dL (<0.1-1.0); TOTAL PROTEIN 7.5 g/dL (6.4-8.2); TROPONIN-I <0.06 ng/mL (<0.06)
[2018-09-21 22:07] LABS: URINE BILIRUBIN NEGATIVE (Negative); URINE BLOOD NEGATIVE (Negative); URINE CLARITY CLEAR; URINE COLOR YELLOW; URINE GLUCOSE-RANDOM* NEGATIVE (Negative); URINE KETONES NEGATIVE (Negative); URINE LEUKOCYTES-REFLEX NEGATIVE (Negative); URINE NITRITE-REFLEX NEGATIVE (Negative); URINE PROTEIN (DIPSTICK) NEGATIVE (Negative); URINE UROBILINOGEN 0.2 E.U./dl (0.2-1.0)
[2018-09-21 23:21] VITALS: BP 149/48
[2018-09-21 23:52] VITALS: BP 146/57
--- NOTE | 2018-09-22 | NUR ---
Pt. admitted up to the unit from the emergency room accompanied by staff. Admission assessment and history is completed. Bed alarm is on.
[2018-09-22 00:15] VITALS: BP 132/60
[2018-09-22 03:55] VITALS: BP 124/56
--- NOTE | 2018-09-22 06:00 | NUR ---
Pt. rested quietly at short intervals during the night when checked on during frequent rounds. She has been given antinausea meds (see emar) with some relief noted. Pt. also c/o abdominal pain and has been given pain meds (see emar) with some relief noted. Assisted up to the bedside comode with assistance of one person. Bed alarm is on.
[2018-09-22 08:00] VITALS: BP 121/59
--- NOTE | 2018-09-22 12:27 | NUR ---
PT ADMITTED RELATED TO ABDOMINAL ABSCESS. CM REVIEWED CHART AND SPOKE WITH CARE TEAM. CM MET WITH PT AT BEDSIDE THIS DAY. PT IS A&O X4. CM ROLE INTRODUCED. PT INDICATED SHE LIVES IN A HOUSE ALONE WITH NO STEPS TO ENTER AND NO STEPS INSIDE. 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 CM TO FOLLOW S INDICATED WITH DC PLANNING.
[2018-09-22 15:00] VITALS: BP 131/68
[2018-09-22 19:13] VITALS: BP 125/59
[2018-09-23 04:13] VITALS: BP 142/75
[2018-09-23 06:19] LABS: HEMATOCRIT 27.6 % (37.0-47.0); HEMOGLOBIN 9.1 gm/dL (12.0-15.0); MCHC 33.1 g/dL (28.0-37.0); MCV 90.5 fL (80.0-100.0); RBC 3.04 mil/uL (4.20-5.00); RDW 13.8 % (10.5-14.5); WBC 9.7 thou/uL (4.0-11.0)
--- NOTE | 2018-09-23 06:32 | NUR ---
Pt. rested quietly at intervals during the night when checked on during frequent rounds. She has been given pain meds for c/o abdominal pain (see emar) with some relief noted. She also c/o nausea and has been given anti- nausea meds (see emar) with relief noted. Bed alarm is on.
[2018-09-23 06:39] LABS: CALCIUM 8.2 mg/dL (8.5-10.1); CREATININE 0.6 mg/dL (0.6-1.0); POTASSIUM 3.2 mmol/L (3.5-5.1)
[2018-09-23 07:16] VITALS: BP 135/67
--- NOTE | 2018-09-23 10:31 | NUR ---
ASSUMED PT CARE AT 0700. ASSESSMENT COMPLETED AND IS CHARTED. VSS. PT REPORTS PAIN 8/10 BUT DOES NOT LIKE FENTANYL. MIDLINE INCISION TO ABDOMEN IS OPEN TO AIR, WELL-APPROXIMATED, AND ASYMPTOMATIC. COLOSTOMY LEAKING OUT SIDE SO 2-PIECE BAG WAS CHANGED. PT CHANGED HERSELF WITH SUPERVISION USING OWN SUPPLIES. STOMA IS DARK RED, MOIST AND RECESSED. SURROUNDING SKIN IS REDDENED. DRAIN DRESSING TO RIGHT ABD. IS CDI, DRAIN IS DRAINING SANQUINEOUS DRAINAGE. OTHERWISE NO NEW CONCERNS. WILL CONTINUE WITH CURRENT CARE AND REQUEST ORAL PAIN MEDICATION.
--- NOTE | 2018-09-23 13:05 | NUR ---
PT DOING WELL THIS AFTERNOON. TOLERATING REGULAR DIET WELL DESPITE A SPELL OF NAUSEA THIS MORNING. STOOL SENT FOR CDIFF. PAIN UNDER CONTROL WITH OXYCODONE. PT FEELS LIKE GOING HOME. WILL NOTIFY PHYSICIAN FOR POSSIBLE DISCHARGE.
[2018-09-23 13:06] VITALS: BP 135/67
[2018-09-23] MEDS ORDERED: AUGMENTIN 875-1 EACH PO ×2 (13:31)
[2018-09-23 13:47] VITALS: BP 135/67
--- NOTE | 2018-09-23 13:53 | NUR ---
CARE TEAM INDICATED THAT PT IS MEDICALLY STABLE TO DC HOME THIS DAY. PT HAD BEEN ON SERVICE WITH [facility] FORENSICS ANALYST AND IS TO HAVE SERVICES RESUMED UPON DC TODAY. NO OTHER CM INTERVENTION INDICATED AT THIS WIN. CASE CLOSED.
--- NOTE | 2018-09-23 14:15 | NUR ---
DISCHARGE INSTRUCTIONS GIVEN. DRAIN EMPTIED. IV REMOVED. DISMISSED PT IN STABLE CONDITION VIA WHEELCHAIR WITH [facility] TO HOME WITH HOME HEALTH.
== END 2018-09-23 14:23 | disposition home health service (06) | DRG 920 ==
LOC: ER 20:33 → EROBS 23:12 → 4W 23:12 → ENTRNSPT 09-23 14:08 → EDTRNSPTSTS 09-23 14:11 → 4W 09-23 14:23
PROVIDERS: Emergency Medicine; Surgery; ADMIT Hospitalist
PROC: 0W9F30Z Drainage of Abdominal Wall with Drainage Device, Percutaneous Approach (ICD-10-PCS; principal; 2018-09-22)
DX: L76.34 Postprocedural seroma of skin and subcutaneous tissue following other procedure (principal); T81.40XA Infection following a procedure, unspecified, initial encounter; L02.211 Cutaneous abscess of abdominal wall; G20 Parkinson's disease; E03.9 Hypothyroidism, unspecified; E78.5 Hyperlipidemia, unspecified; E05.00 Thyrotoxicosis with diffuse goiter without thyrotoxic crisis or storm; F32.9 Major depressive disorder, single episode, unspecified; F41.9 Anxiety disorder, unspecified; G62.9 Polyneuropathy, unspecified; D64.9 Anemia, unspecified; K59.00 Constipation, unspecified; M62.84 Sarcopenia; D72.829 Elevated white blood cell count, unspecified; G89.4 Chronic pain syndrome; Y83.8 Other surgical procedures as the cause of abnormal reaction of the patient, or of later complication, without mention of misadventure at the time of the procedure; F17.210 Nicotine dependence, cigarettes, uncomplicated; I25.2 Old myocardial infarction; Z86.73 Personal history of transient ischemic attack (TIA), and cerebral infarction without residual deficits; Z90.49 Acquired absence of other specified parts of digestive tract; Z86.14 Personal history of Methicillin resistant Staphylococcus aureus infection; Z88.1 Allergy status to other antibiotic agents; Z88.8 Allergy status to other drugs, medicaments and biological substances; Z82.49 Family history of ischemic heart disease and other diseases of the circulatory system; Y92.89 Other specified places as the place of occurrence of the external cause
CPT/HCPCS: 10040

== ENCOUNTER 2018-10-05 18:41 | Emergency (ER) | payer OTHER ==
[~2018-10-05] VITALS: Ht 165.1 cm; Wt 59.4 kg
[~2018-10-05 18:41] MED LIST changes: +AUGMENTIN 875-1 EACH PO
[2018-10-05 19:24] LABS: BASOPHILS 0.6 % (0.0-2.0); EOSINOPHILS 2.2 % (0.0-3.0); HEMATOCRIT 29.6 % (37.0-47.0); HEMOGLOBIN 9.9 gm/dL (12.0-15.0); LYMPHOCYTES 24.5 % (24.0-44.0); MCH 30.4 pg (26.0-34.0); MCHC 33.3 g/dL (28.0-37.0); MCV 91.3 fL (80.0-100.0); MONOCYTES 6.9 % (1.0-8.0); PLATELET COUNT 343 thou/uL (150-400); POLYS 65.8 % (36.0-66.0); RBC 3.24 mil/uL (4.20-5.00); RDW 14.9 % (10.5-14.5); WBC 7.7 thou/uL (4.0-11.0)
[2018-10-05 19:27] LABS: ANION GAP 10 mmol/L (7-16); BUN 16 mg/dL (7-18); CHLORIDE 103 mmol/L (98-107); CO2 25 mmol/L (21-32); CREATININE 0.7 mg/dL (0.6-1.0); GLUCOSE 112 mg/dL (74-106); POTASSIUM 3.6 mmol/L (3.5-5.1); SODIUM 138 mmol/L (136-145)
[2018-10-05 19:33] LABS: ALBUMIN 3.5 g/dL (3.4-5.0); DIRECT BILIRUBIN < 0.1 mg/dL (<0.1-0.3); LIPASE 58 U/L (73-393); SGOT 17 U/L (15-37); SGPT 11 U/L (30-65); TOTAL BILIRUBIN 0.3 mg/dL (<0.1-1.0); TOTAL PROTEIN 7.4 g/dL (6.4-8.2)
[2018-10-05] MEDS ORDERED: KLONOPIN0.5 MG PO (19:46)
[2018-10-05] MEDS ORDERED: NEURONTIN 300300 M1 PO (19:48)
[2018-10-05 20:10] LABS: URINE BILIRUBIN NEGATIVE (Negative); URINE BLOOD NEGATIVE (Negative); URINE CLARITY CLEAR; URINE COLOR ORANGE; URINE GLUCOSE-RANDOM* NEGATIVE (Negative); URINE KETONES NEGATIVE (Negative); URINE LEUKOCYTES-REFLEX TRACE (Negative); URINE NITRITE-REFLEX NEGATIVE (Negative); URINE PROTEIN (DIPSTICK) NEGATIVE (Negative); URINE SPECIFIC GRAVITY 1.015 (1.005-1.035); URINE UROBILINOGEN 0.2 E.U./dl (0.2-1.0)
[2018-10-05] MEDS ORDERED: BENTYL 20 MG TA20 M1 PO (20:57)
[2018-10-05 21:32] VITALS: BP 130/60
[2018-10-06] MEDS ORDERED: SINEMET 25-1001 EAC1 PO (01:38)
[2018-10-06] MEDS ORDERED: VITAMIN B-12500 MCG PO (01:41)
[2018-10-06] MEDS ORDERED: VITAMIN E400 UNIT PO (01:41)
[2018-10-06] MEDS ORDERED: FISH OIL 1,001000 M2 PO (01:42)
[2018-10-06] MEDS ORDERED: VITAMINC500 PO (01:42)
[2018-10-06] MEDS ORDERED: IRON325 PO (01:43)
== END 2018-10-05 21:33 | disposition home or self-care (01) ==
LOC: ER 18:41
PROVIDERS: Emergency Medicine
DX: R10.84 Generalized abdominal pain (principal); R19.7 Diarrhea, unspecified; F17.210 Nicotine dependence, cigarettes, uncomplicated; G20 Parkinson's disease; E03.9 Hypothyroidism, unspecified; E78.5 Hyperlipidemia, unspecified; E05.00 Thyrotoxicosis with diffuse goiter without thyrotoxic crisis or storm; Z90.49 Acquired absence of other specified parts of digestive tract; G89.4 Chronic pain syndrome; M54.9 Dorsalgia, unspecified; F32.9 Major depressive disorder, single episode, unspecified; F41.9 Anxiety disorder, unspecified; Z86.73 Personal history of transient ischemic attack (TIA), and cerebral infarction without residual deficits; Z95.5 Presence of coronary angioplasty implant and graft; Z86.2 Personal history of diseases of the blood and blood-forming organs and certain disorders involving the immune mechanism; Z98.890 Other specified postprocedural states; Z88.1 Allergy status to other antibiotic agents; Z88.8 Allergy status to other drugs, medicaments and biological substances

== ENCOUNTER → 2018-10-13 | Outpatient (CLI) | payer OTHER ==
[~2018-10-13] MED LIST changes: +BENTYL 20 MG TA20 M1 PO; +KLONOPIN0.5 MG PO; +NEURONTIN 300300 M1 PO; +VITAMIN B-12500 MCG PO; +VITAMIN E400 UNIT PO
== END | disposition home or self-care (01) ==
LOC: SPEC 06:30
DX: T85.698A Other mechanical complication of other specified internal prosthetic devices, implants and grafts, initial encounter (principal); E78.00 Pure hypercholesterolemia, unspecified; E03.9 Hypothyroidism, unspecified; G20 Parkinson's disease; F32.9 Major depressive disorder, single episode, unspecified; D64.9 Anemia, unspecified; I25.2 Old myocardial infarction; E78.5 Hyperlipidemia, unspecified; F41.9 Anxiety disorder, unspecified; F17.210 Nicotine dependence, cigarettes, uncomplicated; Z79.899 Other long term (current) drug therapy; Z86.73 Personal history of transient ischemic attack (TIA), and cerebral infarction without residual deficits; Z98.890 Other specified postprocedural states; Z88.8 Allergy status to other drugs, medicaments and biological substances; Z79.891 Long term (current) use of opiate analgesic; Z95.1 Presence of aortocoronary bypass graft; Z82.49 Family history of ischemic heart disease and other diseases of the circulatory system; Z90.49 Acquired absence of other specified parts of digestive tract; Z79.01 Long term (current) use of anticoagulants; Y83.8 Other surgical procedures as the cause of abnormal reaction of the patient, or of later complication, without mention of misadventure at the time of the procedure

== ENCOUNTER 2021-01-31 15:04 | Emergency (ER) | payer OTHER ==
[~2021-01-31] VITALS: Ht 165.1 cm; Wt 51.7 kg
--- NOTE | ~2021-01-31 | EMS ---
[facility] [address] [place] [address] EMS Patient Care Report Name: CATARINO CEDENO Room #: REG [place]#: [id number] Admission: 01/31/21 Attend Phys: Discharge: Date of : 46 Report #: [id number] THIS REPORT FOR: //name// Report Transmitted: 01/31/2021 16:00 EMS Care Summary [facility] Incident [id number] @ 01/31/2021 14:05 Incident Location [address] [place] [address] DR GOMEZ, [place] [address] Patient CATARINO CEDENO Female, 70 Years 1950 Patient Address [address] [place] [address] dr. Gomez, [place] [address] Patient History Parkinson's Disease,Cardiac - Stent,Graves' Disease, Patient Allergies No known allergies, Patient Medications None Reported, Chief Complaint injury from fall down the stairs Disposition Transported No Lights/[place] Reason Falls Transported To [facility] Narrative Dispatched for a fall with injuries. The patient is found at the bottom of the stairs in the basement. She is alert and oriented x3 with a GCS of 15. Jason willoughby is already there and has a c collar on her. She slipped down the last 5 stairs injuring her lower back, right hip and right knee. She denies losing [address] [address] EMS Patient Care Report Name: CATARINO CEDENO Room #: REG [place]#: [id number] Admission: 01/31/21 Attend Phys: Discharge: Date of : 46 Report #: [id number] consciousness. A head to toe shows only pain in these areas with some mild crepitus in the right knee. Vitals were taken. One failed iv attempt on the stairs before she was moved. She declined allowing me to try for an iv again and did not want anymore needles. She was placed on the stretcher, using a pillow under her hip for comfort. Once in the ambulance, she was put back on the monitor. While transporting she would grimace a lot while hitting bumps. She allowed me to give her an IM shot of fentanyl for the pain. Trending and monitoring continued while transporting. She did agree that her pain level did go down. Patient care was then transferred over to ER staff. Initial Vitals @14:30P: 75,R: 9,BP: 121/71,Pain: 6/10,GCS: 15,SpO2: 97,Revised Trauma: 10, @14:41P: 72,R: 12,BP: 118/72,Pain: 6/10,GCS: 15,SpO2: 96,Revised Trauma: 12, @14:39P: 72,R: 12,BP: 125/69,Pain: 6/10,GCS: 15,SpO2: 97,Revised Trauma: 12, @14:51P: 69,R: 12,BP: 110/80,Pain: 4/10,GCS: 15,SpO2: 97,Revised Trauma: 12, Assessments @14:18MENTAL:Person Oriented,Time Oriented,Place Oriented,Event Oriented,SKIN:HEENT:Eyes: No Abnormalities,Neck/Airway: No Abnormalities,LUNG SOUNDS:ABDOMEN:PELVIS//GI:Tenderness,EXTREMITIES:Right Leg: Other,Left Arm: No Abnormalities,Right Arm: No Abnormalities,Left Leg: No Abnormalities,PULSE:Radial: 2+ Normal,NEURO:@14:55MENTAL:Person Oriented,Time Oriented,Place Oriented,Event Oriented,SKIN:HEENT:Head/Face: No Abnormalities,Eyes: No Abnormalities,Neck/Airway: No Abnormalities,LUNG SOUNDS:General: No Abnormalities,Left Upper: No Abnormalities,Right Upper: No Abnormalities,Left Lower: No Abnormalities,Right Lower: No Abnormalities,ABDOMEN:General: No Abnormalities,Left Upper: No Abnormalities,Right Upper: No Abnormalities,Left Lower: No Abnormalities,Right Lower: No Abnormalities,PELVIS//GI:No Abnormalities,EXTREMITIES:Right Leg: Other,Capillary Refill: Right Upper: < 2 Sec,Left Arm: No Abnormalities,Right Arm: No Abnormalities,Left Leg: No Abnormalities,PULSE:Radial: 2+ Normal,NEURO:No Abnormalities, Impression Injury of Hip Procedures @14:20ALS AssessmentResponse: UnchangedSucceeded@14:20Normal Saline (.9% NaCl) cc (22 ga) Site: Antecubital-RightResponse: UnchangedFailed@14:293-Lead ECGResponse: UnchangedSucceeded@14:37Fentanyl - 50 Milligrams (mg) - Intramuscular (IM)Response: Improved@PTA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Response: UnchangedSucceeded 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,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,Response: UnchangedSucceeded, 14:04,Call Received [facility] [address] [place] [address] EMS Patient Care Report Name: CATARINO CEDENO Room #: REG [facility] ReynoldsR.#: [id number] Admission: 01/31/21 Attend Phys: Discharge: Date of : 46 Report #: [id number] 14:04,Psap Call 14:05,Dispatched 14:07,En Route 14:14,On Scene 14:16,At Patient 14:20,ALS Assessment,Response: UnchangedSucceeded, 14:20,Normal Saline (.9% NaCl) cc 22 ga Site: Antecubital-Right,Response: UnchangedFailed, 14:29,3-Lead ECG,Response: UnchangedSucceeded, 14:29,Depart Scene 14:30,BP: 121/71 M,PULSE: 75,RR: 9 R,SPO2: 97 Ox,ETCO2: ,BG: ,PAIN: 6,GCS: 15, 14:37,Fentanyl - 50 Milligrams (mg) - Intramuscular (IM),Response: Improved 14:39,BP: 125/69 M,PULSE: 72,RR: 12 R,SPO2: 97 Ox,ETCO2: ,BG: ,PAIN: 6,GCS: 15, 14:41,BP: 118/72 M,PULSE: 72,RR: 12 R,SPO2: 96 Ox,ETCO2: ,BG: ,PAIN: 6,GCS: 15, 14:51,BP: 110/80 M,PULSE: 69,RR: 12 R,SPO2: 97 Ox,ETCO2: ,BG: ,PAIN: 4,GCS: 15, 14:56,At Destination 15:43,Call Closed Disclaimer v1.1 Copyright 2020 [employer] This EMS Care Summary contains data elements from the applicable legal record (which may be displayed differently). It is designed to provide pertinent information for the following purposes: continuity of care, clinical quality, and state data reporting. The complete legal record is available to ED staff and administrators of the receiving hospital in [employer] Patient Tracker. All data is provided "as is."
[2021-01-31 16:51] LABS: ABSOLUTE NEUTROPHILS 3.8 thou/uL (1.4-8.2); BASOPHILS 1.1 % (0.0-2.0); EOSINOPHILS 1.8 % (0.0-3.0); HEMATOCRIT 33.9 % (37.0-47.0); HEMOGLOBIN 11.3 gm/dL (12.0-15.0); LYMPHOCYTES 29.1 % (24.0-44.0); MCHC 33.3 g/dL (28.0-37.0); MCV 90.2 fL (80.0-100.0); MONOCYTES 7.8 % (1.0-8.0); PLATELET COUNT 237 thou/uL (150-400); POLYS 60.2 % (36.0-66.0); RBC 3.75 mil/uL (4.20-5.00); RDW 14.6 % (10.5-14.5); WBC 6.2 thou/uL (4.0-11.0)
[2021-01-31 17:07] LABS: ANION GAP 7 mmol/L (7-16); BUN 16 mg/dL (7-18); CALCIUM 9.3 mg/dL (8.5-10.1); CHLORIDE 106 mmol/L (98-107); CO2 27 mmol/L (21-32); CREATININE 0.8 mg/dL (0.6-1.0); GLUCOSE 94 mg/dL (74-106); POTASSIUM 4.1 mmol/L (3.5-5.1); SODIUM 140 mmol/L (136-145)
[2021-01-31 17:18] LABS: ALBUMIN 3.9 g/dL (3.4-5.0); MAGNESIUM 1.9 mg/dL (1.8-2.4); PHOSPHORUS 2.6 mg/dL (2.6-4.7); SGOT 16 U/L (15-37); SGPT 17 U/L (14-59); TOTAL BILIRUBIN 0.6 mg/dL (0.2-1.0); TOTAL PROTEIN 7.4 g/dL (6.4-8.2); TROPONIN-I <0.06 ng/mL (<0.06)
[2021-01-31 18:17] VITALS: BP 158/71
--- NOTE | 2021-02-01 07:34 | EKG ---
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: KF : 1950 Requested By: Ko Harding Order Number: [id number] MD: Salomon Lopez Measurements Intervals [place] Rate: 70 P: 79 AL: 176 QRS: 29 QRSD: 100 T: 41 QT: 418 QTc: 452 Interpretive Statements Sinus rhythm Consider left atrial enlargement Low voltage, extremity leads Compared to ECG 09/21/2018 21:14:39 Low QRS voltage now present Electronically Signed On 02-01-2021 7:34:03 CDT by Salomon Lopez [email or web address] <ELECTRONICALLY SIGNED> By: Salomon Lopez MD, [facility] 02/01/21 0734 D: 07/1713 13 Salomon Lopez MD, FACC /EPI
== END 2021-01-31 18:17 | disposition home or self-care (01) ==
LOC: ER 15:04
PROVIDERS: Emergency Medicine
DX: S70.01XA Contusion of right hip, initial encounter (principal); S70.11XA Contusion of right thigh, initial encounter; E03.9 Hypothyroidism, unspecified; E78.5 Hyperlipidemia, unspecified; F32.9 Major depressive disorder, single episode, unspecified; F17.210 Nicotine dependence, cigarettes, uncomplicated; Z79.2 Long term (current) use of antibiotics; Z79.82 Long term (current) use of aspirin; Z88.1 Allergy status to other antibiotic agents; W17.89XA Other fall from one level to another, initial encounter; W01.0XXA Fall on same level from slipping, tripping and stumbling without subsequent striking against object, initial encounter; Y93.89 Activity, other specified; Y92.89 Other specified places as the place of occurrence of the external cause; Y99.8 Other external cause status

== ENCOUNTER 2021-03-01 09:45 | Emergency (ER) | payer OTHER ==
[~2021-03-01] VITALS: Ht 165.1 cm; Wt 51.3 kg
[2021-03-01] MEDS ORDERED: LIDODERM1 EACH TOP (11:20)
[2021-03-01 11:36] VITALS: BP 144/83
== END 2021-03-01 11:55 | disposition home or self-care (01) ==
LOC: ER 09:45
DX: S16.1XXA Strain of muscle, fascia and tendon at neck level, initial encounter (principal); S10.82XA Blister (nonthermal) of other specified part of neck, initial encounter; M54.2 Cervicalgia; E03.9 Hypothyroidism, unspecified; E78.5 Hyperlipidemia, unspecified; I25.2 Old myocardial infarction; F41.9 Anxiety disorder, unspecified; F32.9 Major depressive disorder, single episode, unspecified; F17.210 Nicotine dependence, cigarettes, uncomplicated; Z98.890 Other specified postprocedural states; Z79.899 Other long term (current) drug therapy; Z79.891 Long term (current) use of opiate analgesic; Z79.82 Long term (current) use of aspirin; Z88.8 Allergy status to other drugs, medicaments and biological substances; Z88.1 Allergy status to other antibiotic agents; Z88.6 Allergy status to analgesic agent

== ENCOUNTER 2021-03-23 13:46 | Emergency (ER) | payer OTHER ==
[~2021-03-23] VITALS: Ht 165.1 cm; Wt 51.3 kg
[2021-03-23 14:21] LABS: URINE BILIRUBIN NEGATIVE (Negative); URINE BLOOD NEGATIVE (Negative); URINE CLARITY CLEAR; URINE COLOR YELLOW; URINE GLUCOSE-RANDOM* NEGATIVE (Negative); URINE KETONES NEGATIVE (Negative); URINE LEUKOCYTES-REFLEX TRACE (Negative); URINE NITRITE-REFLEX NEGATIVE (Negative); URINE PROTEIN (DIPSTICK) NEGATIVE (Negative); URINE UROBILINOGEN 0.2 E.U./dl (0.2-1.0)
[2021-03-23 14:21] LABS: ABSOLUTE NEUTROPHILS 4.6 thou/uL (1.4-8.2); EOSINOPHILS 1.6 % (0.0-3.0); HEMATOCRIT 36.6 % (37.0-47.0); LYMPHOCYTES 23.5 % (24.0-44.0); MCH 30.1 pg (26.0-34.0); MCHC 32.9 g/dL (28.0-37.0); MCV 91.6 fL (80.0-100.0); MONOCYTES 6.2 % (1.0-8.0); PLATELET COUNT 304 thou/uL (150-400); POLYS 67.7 % (36.0-66.0); RDW 14.5 % (10.5-14.5); WBC 6.9 thou/uL (4.0-11.0)
[2021-03-23 14:35] LABS: CALCIUM 9.2 mg/dL (8.5-10.1); CREATININE 0.9 mg/dL (0.6-1.0); POTASSIUM 4.9 mmol/L (3.5-5.1)
[2021-03-23 14:40] LABS: ALBUMIN 3.7 g/dL (3.4-5.0); TOTAL BILIRUBIN 0.5 mg/dL (0.2-1.0); TOTAL PROTEIN 7.3 g/dL (6.4-8.2)
[2021-03-23] MEDS ORDERED: ZOFRAN ODT4 MG PO (16:26)
[2021-03-23 16:46] VITALS: BP 164/81
== END 2021-03-23 16:47 | disposition home or self-care (01) ==
LOC: ER 13:46
PROVIDERS: Student in an Organized Health Care Education/Training Program
DX: R19.7 Diarrhea, unspecified (principal); E03.9 Hypothyroidism, unspecified; E78.5 Hyperlipidemia, unspecified; I25.2 Old myocardial infarction; F32.9 Major depressive disorder, single episode, unspecified; F41.9 Anxiety disorder, unspecified; F17.210 Nicotine dependence, cigarettes, uncomplicated; Z98.890 Other specified postprocedural states; Z79.899 Other long term (current) drug therapy; Z79.82 Long term (current) use of aspirin; Z79.891 Long term (current) use of opiate analgesic; Z88.1 Allergy status to other antibiotic agents; Z88.8 Allergy status to other drugs, medicaments and biological substances